=== PATIENT | female | born 1945 | race Caucasian/White ===

== ENCOUNTER → 2017-12-05 10:21 | Outpatient (CLI) | payer OTHER, SELFPAY ==
--- NOTE | 2017-12-05 | DI.MG.S_ITS ---
BILATERAL DIGITAL SCREENING MAMMOGRAM 3D/2D WITH CAD: 12/05/2017 CLINICAL: Routine screening. Family history of breast cancer. Comparison is made to exams dated: 12/02/2016 mammogram, 12/01/2015 mammogram, and 11/26/2014 mammogram - [facility]. The tissue of both breasts is predominantly fatty. Current study was also evaluated with a Computer Aided Detection (CAD) system. No significant masses, calcifications, or other findings are seen in either breast. There has been no significant interval change. IMPRESSION: NEGATIVE There is no mammographic evidence of malignancy. A 1 year screening mammogram is recommended.(12/06/2018) This exam was interpreted at Station ID: [id number]. NOTE: For mammograms, a report in lay terms will be sent to the patient. Approximately 15% of breast malignancies will not be visualized mammographically. In the management of a palpable breast mass, a negative mammogram must not discourage biopsy of a clinically suspicious lesion. Electronically Signed By: Calvin jones/jacklyn:12/07/2017 06:06:13 letter sent: Normal Exam ACR BI-RADS Category 1: Negative 3341F
== END ==
PROVIDERS: Family Provider Family Medicine; PCP Family Medicine; Visit Provider Family Medicine
DX: Z12.31 Encounter for screening mammogram for malignant neoplasm of breast (principal); Z80.3 Family history of malignant neoplasm of breast
CPT/HCPCS: 77063; 77067

== ENCOUNTER → 2018-02-06 14:42 | Outpatient (CLI) | payer OTHER, SELFPAY ==
[2018-02-06 15:30] LABS: Add Manual Diff / Slide Review NO; Basophils Percent Auto 0.9 % (0-2); Eosinophils Percent Auto 3.4 % (2-4); Hematocrit 43.7 % (36-46); Hemoglobin 14.5 g/dL (12.0-16.0); Lymphocytes Percent Auto 32.8 % (25-40); Mean Corpuscular HGB Conc 33.2 % (30-36); Mean Corpuscular Hemoglobin 29.3 PG (26-34); Mean Corpuscular Volume 88.2 fL (80-100); Neutrophils Absolute Auto 2700 /uL (3000-5900); Neutrophils Percent Auto 49.9 % (50-75); Platelet Count 314 X10^3/uL (150-400); Red Blood Cell Count 4.95 X10^6/uL (4.0-5.2); Red Cell Distribution Width 13.2 % (11.6-14.8); White Blood Cell Count 5.4 X10^3/uL (4.5-11.0)
[2018-02-06 15:34] LABS: Hemoglobin A1C% w Est Avg Glu 8.8 % (4.0-6.0)
[2018-02-06 16:14] LABS: Erythrocyte Sedimentation Rate 20 MM/HR (0-20)
[2018-02-06 16:49] LABS: Alanine Aminotransferase 24 IU/L (9-52); Albumin Globulin Ratio 1.6 (1.0-2.8); Alkaline Phosphatase 68 U/L (38-126); Aspartate Aminotransferase 19 IU/L (14-36); BUN Creatinine Ratio 32.9 (6-22); Bilirubin Total 0.4 mg/dL (0.2-1.3); Blood Urea Nitrogen 23 mg/dL (7-17); C-Reactive Protein Quant 1.9 mg/dL (<1.0); Calcium 9.4 mg/dL (8.4-10.2); Carbon Dioxide 22 mmol/L (22-32); Chloride 102 mmol/L (98-107); Estimated Glomerular Filt Rate > 60.0 mL/min (>60); Globulin 2.5 g/dL (1.7-4.1); Glucose 282 mg/dL (80-110); HEMOLYSIS < 15 (0-50); Potassium 3.8 mmol/L (3.4-5.1); Sodium 141 mmol/L (137-145); Total Protein 6.5 g/dL (6.3-8.2); Uric Acid 5.5 mg/dL (2.5-6.2)
[2018-02-06 17:04] LABS: Rheumatoid Factor 306.2 IU/mL (<12.0)
[2018-02-06 17:09] LABS: Thyroid Stimulating Hormone 0.91 uIU/mL (0.47-4.68)
[2018-02-08 19:54] LABS: ANA Pattern Homogeneous; ANA Screen, IFA Positive (Negative); ANA Titer 1:40 titer (<1:40)
== END ==
PROVIDERS: PCP Internal Medicine; Visit Provider Internal Medicine
DX: E11.9 Type 2 diabetes mellitus without complications (principal); E78.2 Mixed hyperlipidemia; I10 Essential (primary) hypertension; M25.40 Effusion, unspecified joint
CPT/HCPCS: 36415; 80053; 83036; 84443; 84550; 85025; 85651; 86038; 86140; 86430

== ENCOUNTER → 2018-05-28 14:24 | Outpatient (CLI) | payer OTHER, SELFPAY ==
[2018-05-28 16:08] LABS: Add Manual Diff / Slide Review NO; Basophils Absolute Auto 0 /uL (0-100); Basophils Percent Auto 0.4 % (0-2); Eosinophils Absolute Auto 100 /uL (0-450); Eosinophils Percent Auto 1.1 % (2-4); Hematocrit 43.9 % (36-46); Hemoglobin 14.3 g/dL (12.0-16.0); Lymphocytes Absolute Auto 1300 /uL (1100-4500); Lymphocytes Percent Auto 16.3 % (25-40); Mean Corpuscular HGB Conc 32.6 % (30-36); Mean Corpuscular Hemoglobin 29.5 PG (26-34); Mean Corpuscular Volume 90.4 fL (80-100); Monocytes Absolute Auto 500 /uL (0-900); Monocytes Percent Auto 6.5 % (3-14); Neutrophils Absolute Auto 6300 /uL (1500-7000); Neutrophils Percent Auto 75.7 % (50-75); Platelet Count 379 X10^3/uL (150-400); Red Blood Cell Count 4.85 X10^6/uL (4.0-5.2); Red Cell Distribution Width 15.5 % (11.6-14.8); White Blood Cell Count 8.3 X10^3/uL (4.5-11.0)
[2018-05-28 16:34] LABS: Alanine Aminotransferase 32 IU/L (9-52); Albumin 4.2 g/dL (3.5-5.0); Albumin Globulin Ratio 1.6 (1.0-2.8); Alkaline Phosphatase 62 U/L (38-126); Aspartate Aminotransferase 20 IU/L (14-36); BUN Creatinine Ratio 48.3 (6-22); Bilirubin Total 0.6 mg/dL (0.2-1.3); Blood Urea Nitrogen 29 mg/dL (7-17); C-Reactive Protein Quant 0.7 mg/dL (<1.0); Calcium 9.6 mg/dL (8.4-10.2); Carbon Dioxide 26 mmol/L (22-32); Chloride 99 mmol/L (98-107); Estimated Glomerular Filt Rate > 60.0 mL/min (>60); Globulin 2.7 g/dL (1.7-4.1); Glucose 221 mg/dL (80-110); HEMOLYSIS < 15 (0-50); Potassium 4.8 mmol/L (3.4-5.1); Sodium 138 mmol/L (137-145); Total Protein 6.9 g/dL (6.3-8.2)
[2018-05-28 16:40] LABS: Erythrocyte Sedimentation Rate 14 MM/HR (0-20)
== END ==
PROVIDERS: PCP Student in an Organized Health Care Education/Training Program; Visit Provider Internal Medicine Rheumatology
DX: M05.79 Rheumatoid arthritis with rheumatoid factor of multiple sites without organ or systems involvement (principal)
CPT/HCPCS: 36415; 80053; 85025; 85651; 86140

== ENCOUNTER → 2018-06-19 11:30 | Outpatient (CLI) | payer OTHER, SELFPAY ==
[2018-06-19 12:46] LABS: Hemoglobin A1C% w Est Avg Glu 7.5 % (4.0-6.0)
[2018-06-19 13:10] LABS: BUN Creatinine Ratio 41.1 (6-22); Blood Urea Nitrogen 37 mg/dL (7-17); Calcium 9.8 mg/dL (8.4-10.2); Carbon Dioxide 26 mmol/L (22-32); Chloride 99 mmol/L (98-107); Creatine Kinase 54 U/L (30-135); Estimated Glomerular Filt Rate > 60.0 mL/min (>60); Glucose 287 mg/dL (80-110); HEMOLYSIS < 15 (0-50); Magnesium 1.7 mg/dL (1.6-2.3); Potassium 4.7 mmol/L (3.4-5.1); Sodium 138 mmol/L (137-145)
[2018-06-19 16:24] LABS: Vitamin D 25 Hydroxy (D3) 49.7 ng/mL (30.0-100.0)
[2018-06-22 15:54] LABS: Rubeola Measles IgG > 300.00 AU/mL (< 25.00)
== END ==
PROVIDERS: PCP Student in an Organized Health Care Education/Training Program; Visit Provider Student in an Organized Health Care Education/Training Program
DX: E11.9 Type 2 diabetes mellitus without complications (principal); R25.2 Cramp and spasm; Z79.899 Other long term (current) drug therapy; Z91.89 Other specified personal risk factors, not elsewhere classified
CPT/HCPCS: 36415; 80048; 82306; 82550; 83036; 83735; 86765

== ENCOUNTER → 2018-09-12 16:26 | Outpatient (CLI) | payer OTHER, SELFPAY ==
[2018-09-12 17:50] LABS: Add Manual Diff / Slide Review NO; Basophils Absolute Auto 0 /uL (0-100); Basophils Percent Auto 0.8 % (0-2); Eosinophils Absolute Auto 300 /uL (0-450); Eosinophils Percent Auto 5.6 % (2-4); Hemoglobin 13.9 g/dL (12.0-16.0); Lymphocytes Absolute Auto 1900 /uL (1100-4500); Lymphocytes Percent Auto 34.9 % (25-40); Mean Corpuscular Hemoglobin 30.8 PG (26-34); Mean Corpuscular Volume 93.3 fL (80-100); Monocytes Absolute Auto 400 /uL (0-900); Monocytes Percent Auto 8.4 % (3-14); Neutrophils Absolute Auto 2700 /uL (1500-7000); Neutrophils Percent Auto 50.3 % (50-75); Platelet Count 355 X10^3/uL (150-400); Red Cell Distribution Width 13.4 % (11.6-14.8); White Blood Cell Count 5.4 X10^3/uL (4.5-11.0)
[2018-09-12 18:32] LABS: Erythrocyte Sedimentation Rate 16 MM/HR (0-20)
[2018-09-12 18:38] LABS: Alanine Aminotransferase 17 IU/L (9-52); Albumin Globulin Ratio 1.3 (1.0-2.8); Alkaline Phosphatase 68 U/L (38-126); Aspartate Aminotransferase 21 IU/L (14-36); Bilirubin Total 0.5 mg/dL (0.2-1.3); Blood Urea Nitrogen 23 mg/dL (7-17); C-Reactive Protein Quant 1.2 mg/dL (<1.0); Calcium 9.1 mg/dL (8.4-10.2); Carbon Dioxide 26 mmol/L (22-32); Chloride 103 mmol/L (98-107); Estimated Glomerular Filt Rate > 60.0 mL/min (>60); Glucose 230 mg/dL (80-110); HEMOLYSIS < 15 (0-50); Potassium 3.4 mmol/L (3.4-5.1); Sodium 140 mmol/L (137-145)
== END ==
PROVIDERS: Family Provider Student in an Organized Health Care Education/Training Program; PCP Student in an Organized Health Care Education/Training Program; Visit Provider Nurse Practitioner
DX: M05.29 Rheumatoid vasculitis with rheumatoid arthritis of multiple sites (principal)
CPT/HCPCS: 36415; 80053; 85025; 85651; 86140

== ENCOUNTER → 2018-10-01 14:57 | Outpatient (CLI) | payer OTHER, SELFPAY ==
[2018-10-01 16:48] LABS: Creatinine Urine Random 103.3 mg/dL
[2018-10-01 16:52] LABS: Microalbumi Creatinin Ratio Ur 21.2 ug/mg CR (<30); Microalbumin Urine Random 2.2 mg/dL (0-1.6)
== END ==
PROVIDERS: PCP Student in an Organized Health Care Education/Training Program; Visit Provider Student in an Organized Health Care Education/Training Program
DX: E11.9 Type 2 diabetes mellitus without complications (principal)
CPT/HCPCS: 82043; 82570

== ENCOUNTER → 2018-12-05 09:04 | Outpatient (CLI) | payer OTHER, SELFPAY ==
[2018-12-05 09:40] LABS: Add Manual Diff / Slide Review NO; Basophils Absolute Auto 100 /uL (0-100); Basophils Percent Auto 1.2 % (0-2); Eosinophils Absolute Auto 100 /uL (0-450); Eosinophils Percent Auto 2.6 % (2-4); Lymphocytes Absolute Auto 1200 /uL (1100-4500); Lymphocytes Percent Auto 27.3 % (25-40); Mean Corpuscular HGB Conc 34.2 % (30-36); Mean Corpuscular Hemoglobin 31.1 PG (26-34); Mean Corpuscular Volume 90.9 fL (80-100); Monocytes Absolute Auto 400 /uL (0-900); Neutrophils Absolute Auto 2800 /uL (1500-7000); Neutrophils Percent Auto 60.9 % (50-75); Platelet Count 279 X10^3/uL (150-400); Red Blood Cell Count 4.51 X10^6/uL (4.0-5.2); Red Cell Distribution Width 14.6 % (11.6-14.8); White Blood Cell Count 4.6 X10^3/uL (4.5-11.0)
[2018-12-05 09:55] LABS: Erythrocyte Sedimentation Rate 10 MM/HR (0-20)
[2018-12-05 10:43] LABS: Hemoglobin A1C% w Est Avg Glu 6.4 % (4.0-6.0)
[2018-12-05 10:44] LABS: Alanine Aminotransferase 26 IU/L (9-52); Albumin 4.1 g/dL (3.5-5.0); Albumin Globulin Ratio 1.5 (1.0-2.8); Alkaline Phosphatase 65 U/L (38-126); Aspartate Aminotransferase 24 IU/L (14-36); BUN Creatinine Ratio 41.3 (6-22); Blood Urea Nitrogen 33 mg/dL (7-17); C-Reactive Protein Quant 0.6 mg/dL (<1.0); Calcium 9.5 mg/dL (8.4-10.2); Carbon Dioxide 23 mmol/L (22-32); Chloride 103 mmol/L (98-107); Estimated Glomerular Filt Rate > 60.0 mL/min (>60); Globulin 2.7 g/dL (1.7-4.1); Glucose 248 mg/dL (80-110); HEMOLYSIS < 15 (0-50); Potassium 3.7 mmol/L (3.4-5.1); Sodium 140 mmol/L (137-145); Total Protein 6.8 g/dL (6.3-8.2)
== END ==
PROVIDERS: PCP Student in an Organized Health Care Education/Training Program; Visit Provider Nurse Practitioner
DX: M06.4 Inflammatory polyarthropathy (principal); M35.00 Sjogren syndrome, unspecified; E11.9 Type 2 diabetes mellitus without complications
CPT/HCPCS: 36415; 80053; 83036; 85025; 85651; 86140

== ENCOUNTER → 2018-12-13 16:01 | Outpatient (CLI) | payer OTHER, SELFPAY ==
--- NOTE | 2018-12-13 | DI.MG.S_ITS ---
BILATERAL DIGITAL SCREENING MAMMOGRAM 3D/2D WITH CAD: 12/13/2018 CLINICAL: Routine screening. Family history of breast cancer. Comparison is made to exams dated: 12/05/2017 mammogram, 12/02/2016 mammogram, and 12/01/2015 mammogram - [facility]. There are scattered fibroglandular elements in both breasts. Current study was also evaluated with a Computer Aided Detection (CAD) system. There are benign calcifications in both breasts. There also are benign post operative findings in both breasts. No significant masses, calcifications, or other findings are seen in either breast. There has been no significant interval change. IMPRESSION: There is no mammographic evidence of malignancy. A 1 year screening mammogram is recommended. This exam was interpreted at Station ID: [id number]. NOTE: For mammograms, a report in lay terms will be sent to the patient. Approximately 15% of breast malignancies will not be visualized mammographically. In the management of a palpable breast mass, a negative mammogram must not discourage biopsy of a clinically suspicious lesion. Electronically Signed By: Hugh montes de oca/jacklyn:12/13/2018 17:01:06 letter sent: Normal Exam ACR BI-RADS Category 2: Benign Finding(s) 3342F
== END ==
PROVIDERS: PCP Student in an Organized Health Care Education/Training Program; Visit Provider Student in an Organized Health Care Education/Training Program
DX: Z12.31 Encounter for screening mammogram for malignant neoplasm of breast (principal); Z80.3 Family history of malignant neoplasm of breast
CPT/HCPCS: 77063; 77067

== ENCOUNTER 2018-12-30 14:16 | Emergency (ER) | payer OTHER, SELFPAY ==
[2018-12-30 14:15] VITALS: BP 142/72; PULSE 75; RESP 14; TEMP 36.3; O2SAT 96
--- NOTE | 2018-12-30 14:38 | PC.NURSE ---
Brought patient 2 tuna sandwiches, yogurt and water
[2018-12-30 15:18] VITALS: BP 167/94; PULSE 87; RESP 18; O2SAT 98
[2018-12-30 16:04] VITALS: BP 144/71; PULSE 86; RESP 18; O2SAT 99
--- NOTE | 2018-12-30 16:22 | ED_ITS ---
HPI - General Adult General Chief complaint: Diabetic Problem Stated complaint: Low blood sugar Time Seen by Provider: 12/30/18 14:23 Source: patient and EMS Mode of arrival: EMS Limitations: no limitations History of Present Illness HPI narrative: Patient comes emergency department complaining of an episode of low blood sugar today, right after lunch. Patient states she took her regular dose of metformin 1000 mg this morning, and then her pre meal insulin 6 units. She states she ate popcorn and cheese, and began to feel as though her sugar was decreasing. Patient states she keep small cans of pop at home to provide quick sugar, and that she drinking a Pepsi. However, she remeasured and found her sugar was still decreasing. Patient denies any nausea or vomiting. She took some other sugary substances and then called EMS, who found her to be hypoglycemic when they arrived. They did give her oral glucose, and patient is feeling better now. Related Data Home Medications Medication Instructions Recorded Confirmed cyclosporine [Restasis] 0.05 OP BID #0 12/09/11 01/01/19 loratadine [Claritin RediTabs] 10 mg PO QDAY #0 12/09/11 01/01/19 aspirin 81 mg tablet,delayed 81 mg PO DAILY 10/13/18 01/01/19 release etanercept 50 mg/mL (1 mL) 50 mg SUBCUT QWEEK 12/20/18 01/01/19 subcutaneous syringe Previous Rx's Medication Instructions Recorded ibuprofen 800 mg tablet 800 mg PO Q6-8H PRN #30 tab 02/06/18 albuterol sulfate 90 mcg/actuation 1 puff INHALATION Q4H PRN #1 03/27/18 aerosol inhaler inhalation lisinopril 20 1 tab PO DAILY #90 tab 03/27/18 mg-hydrochlorothiazide 25 mg tablet metformin 500 mg tablet,extended 1,000 mg PO BID #360 tab 03/27/18 release 24 hr metoprolol tartrate 100 mg tablet 100 mg PO BID #180 tab 03/27/18 montelukast 10 mg tablet 10 mg PO QDAY #90 tab 03/27/18 simvastatin 40 mg tablet 40 mg PO Q DAY #90 tab 03/27/18 Glucose: Test Strips #100 each 04/20/18 cyclobenzaprine 10 mg tablet 10 mg PO Q6H PRN #60 tab 04/20/18 Lispro sliding scale #1 ea 09/21/18 pentips 31x1/4 #200 each 09/21/18 insulin lispro 100 unit/mL 6 unit SUBCUT QA #15 ml 10/04/18 subcutaneous pen amlodipine 5 mg tablet 5 mg PO DAILY #90 tab 12/20/18 Allergies Allergy/AdvReac Type Severity Reaction Status Date / Time propoxyphene [PROPOXYPHENE] Allergy Intermediate Itching Verified 01/01/19 15:30 Tetanus Vaccines and Toxoid Allergy Intermediate BLACK OUT Verified 01/01/19 15:30 [TETANUS VACCINES & TOXOID] cephalexin [CEPHALEXIN] Allergy Mild PT NOT SURE Verified 01/01/19 15:30 adhesive [ADHESIVE] AdvReac Severe ITCHY Verified 01/01/19 15:30 Review of Systems Constitutional Constitutional: Denies chills, Denies fatigue, Denies fever(s), Denies frequent falls, Denies lethargy and Denies weakness Eyes Eyes: Denies change in vision, Denies eye discharge, Denies irritation and Denies loss of vision ENT Ears, Nose, Mouth, and Throat: Denies change in voice, Denies dizziness, Denies neck pain, Denies sore throat and Denies throat swelling Cardiovascular Cardiovascular: Denies chest pain, Denies irregular heart rhythm, Denies lightheadedness, Denies palpitations, Denies dyspnea, Denies dyspnea on exertion and Denies orthopnea Respiratory Respiratory: Denies cough, Denies dyspnea, Denies dyspnea on exertion and Denies wheezing Gastrointestinal Gastrointestinal: Denies abdominal pain, Denies change in bowel habits, Denies diarrhea, Denies nausea and Denies vomiting Genitourinary Genitourinary: Denies hematuria, Denies flank pain, Denies urinary incontinence and Denies urinary urgency Musculoskeletal Musculoskeletal: Denies back pain, Denies muscle weakness, Denies neck pain, Denies numbness and Denies tingling Integumentary/Breasts Skin/Breast: Denies pruritus, Denies erythema, Denies rash and Denies wounds Neurologic Neurologic: Denies behavioral changes, Denies confusion, Denies dizziness, Denies frequent falls, Denies loss of vision, Denies numbness, Denies tingling and Denies weakness Psychiatric Psychiatric: Denies anxiety, Denies behavioral changes, Denies confusion, Denies depression, Denies homicidal ideation and Denies suicidal ideation Endocrine Endocrine: Denies fatigue, Denies flushing and Denies palpitations Hematologic/Lymphatic Hematologic/Lymphatic: Denies easy bruising Allergic/Immunologic Allergic/Immunologic: Denies urticaria, Denies throat swelling and Denies wheezing Patient History Medical History Abnormal Pap smear of cervix (Resolved 1977) Ankle pain (Chronic) Anxiety (Chronic) Asthma (Chronic) Chicken pox (Resolved) Chronic cough (Chronic) Chronic headaches (Chronic) CTS (carpal tunnel syndrome) (Chronic) Depression (Chronic) Diabetes mellitus (Chronic) Foot pain (Chronic) Hayfever (Chronic) History of heavy periods (Resolved 1959) Infertility (Resolved 1974) Irregular periods/menstrual cycles (Resolved 1959) Measles (Resolved) Migraines (Chronic) Rosacea (Chronic) Surgical History Anesthesia complication (Resolved) History of ankle surgery (Resolved) History of back surgery (Resolved) History of bladder surgery (Resolved) History of breast surgery (Resolved) History of colonoscopy (Resolved) History of eye surgery (Resolved) History of eyelid surgery (Resolved) History of gynecologic surgery (Resolved) History of hand surgery (Resolved) History of hysterectomy (Resolved) History of right knee surgery (Resolved) History of tonsillectomy (Resolved) History of tooth extraction (Resolved) History of urinary tract surgery (Resolved) Status post right foot surgery (Resolved) Surgical history of tubal ligation (Resolved) Family History Brother Age: 80 Skin cancer Hypertension High cholesterol Asthma COPD (chronic obstructive pulmonary disease) Heart defect Brother Age: 74 Skin cancer Hypertension S/P triple vessel bypass Father Skin cancer Hypertension Stroke Aortic aneurysm Grandfather Diabetes mellitus Stroke Mother Skin cancer Heart disease Hypertension Stroke Heart failure Brother SIDS (sudden infant syndrome) Grandmother Heart failure Grandfather Stroke Grandmother No problems noted. Social History Smoking Status: Never smoker alcohol intake frequency: 0-2 drinks per day Substance Use Type: does not use Exam Initial Vital Signs Initial Vital Signs: Vital Signs Temperature 97.4 F L 12/30/18 14:15 Pulse Rate 75 12/30/18 14:15 Respiratory Rate 14 12/30/18 14:15 Blood Pressure 142/72 H 12/30/18 14:15 Pulse Oximetry 96 12/30/18 14:15 Const General: cooperative and well developed Nutritional Appearance: well nourished Orientation: alert, awake, oriented x3 and not confused [facility] Head: normocephalic and atraumatic Ears: external ears normal Nose: external nose normal and No nasal discharge Face and sinus: face symmetric and No dry mucous membranes Mouth: oral mucosae normal and moist mucous membranes Teeth and gingiva: dentition normal Eyes General: appearance normal, both eyes and all related structures Eyelids: eyelids normal Conjunctivae: conjunctivae normal Sclera: sclerae normal Pupils: PERRL EOM: EOM intact bilaterally Neck Neck: normal visual inspection, trachea midline, No lymphadenopathy, No midline deformity and No JVD Lymphatic: No lymphedema Chest Chest: normal inspection of the chest Resp Effort & Inspection: normal respiratory effort, able to speak in complete sentences, no respiratory distress and no use of accessory muscles Auscultation: clear to auscultation bilaterally, no rales, no rhonchi and no wheezes Cardio Rate: regular rate Rhythm: regular rhythm Heart Sounds: no click, no gallops, no murmurs and no rubs Pulses: normal peripheral pulses GI Inspection: non-distended Palpation: soft, no hepatosplenomegaly, No guarding, No pulsatile mass and No tender Auscultation: normal bowel sounds Back/Spine/Pelvis Back: No CVA tenderness Cervical Spine: cervical ROM normal and No pain with cervical ROM Thoracic/Lumbar Spine: thoracic and lumbar spine normal to inspection Skin General: no rashes or lesions noted, No jaundice and No petechiae Neuro General: alert, oriented x3, gait normal and no focal motor deficits Speech: speech normal Extrem General: full ROM, no clubbing, cyanosis or edema, no pedal edema and no calf tenderness Psych Appearance: well kempt Mental Status: mental status grossly normal Attitude: cooperative Thought Content: normal and suicidality Judgment: judgment good Course Course Course Narrative: Patient was well-appearing by the time she arrived in the emergency department, and she was observed to be sure she would not become hypoglycemic again. The patient was given food to eat in the emergency department. Remained normal here. We have discussed making adjustments to the patient's BID metformin to see if this helps provide her sugars from going low. I have discussed the importance of follow-up with the patient's primary care physician, as prior to these recent days, patient has not had issues with hypoglycemia. As such, I would like her primary doctor to make the ultimate determination as to was a good long-term plan for the patient's glycemic management. We have discussed that the patient should check her sugar before deciding whether to take her normal dose of metformin or a little bit smaller one. We have discussed home management of symptoms, as well as the usual indications for return. Vital Signs Vital signs: Vital Signs - 8 hr 12/30/18 14:15 12/30/18 15:18 12/30/18 16:04 Temperature 97.4 F L Pulse Rate 75 87 86 Respiratory Rate 14 18 18 Blood Pressure 142/72 H Blood Pressure [Right Arm] 167/94 H 144/71 H Pulse Oximetry 96 98 99 Medical Decision Making Medical Records Medical records reviewed: Yes I reviewed the patient's medical records. 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 Hopefully, the 2 episodes of hypoglycemia that you have had are just a coincidence, as it seems that your diabetes regimen has actually been controlling your sugars quite well, without overshooting. However, if you do continue to have episodes of low blood sugar, the best plan this point, until you can see your primary care physician and determine exactly what to adjust in the long-term, would be to decrease your metformin to 750 mg twice daily and see if this prevents the low blood sugar episodes while giving you reasonable control of your blood sugar still. Please call your primary doctor's office 1st thing tomorrow morning to set up a follow-up appointment to discuss the issue of your blood sugar. Be sure to eat full meals to help avoid this problem, as well. Continue to keep quick sources of sugar around, preferably non caffeinated, as this can make your hypoglycemia worse. Prescriptions: No Action loratadine [Claritin RediTabs] 10 MG tablet,disintegrating 10 mg PO QDAY Qty: 0 RF: 0 cyclosporine [Restasis] 1 EACH dropperette 0.05 OP BID Qty: 0 RF: 0 (DME) Glucose: Test Strips 0 .Route .MEDSUPPLY Qty: 100 RF: 11 cyclobenzaprine 10 mg tablet 10 mg PO Q6H PRN (Reason: muscle spasm) Qty: 60 RF: 5 (DME) pentips 31x1/4 See Rx Instructions .Route .MEDSUPPLY Qty: 200 RF: 3 insulin lispro 100 unit/mL insulin pen 6 unit SUBCUT QAC Qty: 15 RF: 5 aspirin 81 mg tablet,delayed release (DR/EC) 81 mg PO DAILY RF: 0 ibuprofen 800 mg tablet 800 mg PO Q6-8H PRN (Reason: pain) Qty: 30 RF: 3 (DME) Lispro sliding scale Qty: 1 RF: 0 lisinopril-hydrochlorothiazide 20-25 mg tablet 1 tab PO DAILY Qty: 90 RF: 3 metoprolol tartrate 100 mg tablet 100 mg PO BID Qty: 180 RF: 3 simvastatin [Zocor] 40 mg tablet 40 mg PO Q DAY Qty: 90 RF: 3 metformin [Glucophage XR] 500 mg tablet extended release 24 hr 1,000 mg PO BID Qty: 360 RF: 3 albuterol sulfate [Ventolin HFA] 90 mcg/actuation HFA aerosol inhaler 1 puff INHALATION Q4H PRN (Reason: shortness of breath or wheezing) Qty: 1 RF: 11 montelukast [Singulair] 10 mg tablet 10 mg PO QDAY Qty: 90 RF: 3 amlodipine 5 mg tablet 5 mg PO DAILY Qty: 90 RF: 3 Enbrel 50 mg/mL (1 mL) syringe 50 mg SUBCUT QWEEK RF: 0 Referrals: Madi Moser MD [Primary Care Provider] -
== END 2018-12-30 16:44 | disposition home or self-care (01) ==
PROVIDERS: Emergency Provider Emergency Medicine; PCP Student in an Organized Health Care Education/Training Program
DX: E13.649 Other specified diabetes mellitus with hypoglycemia without coma (principal)
CPT/HCPCS: 82962; 99282

== ENCOUNTER → 2019-01-01 14:11 | Outpatient (CLI) | payer OTHER, SELFPAY | PROVIDERS: PCP Student in an Organized Health Care Education/Training Program; Visit Provider Student in an Organized Health Care Education/Training Program | DX: Z13.820 Encounter for screening for osteoporosis (principal); Z78.0 Asymptomatic menopausal state; E11.9 Type 2 diabetes mellitus without complications; R29.890 Loss of height; M06.9 Rheumatoid arthritis, unspecified; Z82.62 Family history of osteoporosis; Z91.89 Other specified personal risk factors, not elsewhere classified | CPT/HCPCS: 77080 ==

== ENCOUNTER → 2019-04-12 10:26 | Outpatient (CLI) | payer OTHER, SELFPAY ==
[2019-04-12 12:38] LABS: Hemoglobin A1C% w Est Avg Glu 7.3 % (4.0-6.0)
== END ==
PROVIDERS: PCP Student in an Organized Health Care Education/Training Program; Visit Provider Student in an Organized Health Care Education/Training Program
DX: E11.9 Type 2 diabetes mellitus without complications (principal)
CPT/HCPCS: 36415; 83036

== ENCOUNTER → 2019-04-20 10:50 | Outpatient (CLI) | payer OTHER, SELFPAY ==
[2019-04-20 11:34] LABS: Add Manual Diff / Slide Review NO; Basophils Absolute Auto 100 /uL (0-100); Basophils Percent Auto 1.2 % (0-2); Eosinophils Absolute Auto 300 /uL (0-450); Eosinophils Percent Auto 5.5 % (2-4); Hematocrit 44.3 % (36-46); Hemoglobin 15.4 g/dL (12.0-16.0); Lymphocytes Absolute Auto 1800 /uL (1100-4500); Lymphocytes Percent Auto 31.5 % (25-40); Mean Corpuscular HGB Conc 34.8 % (30-36); Mean Corpuscular Hemoglobin 31.6 PG (26-34); Mean Corpuscular Volume 90.8 fL (80-100); Monocytes Absolute Auto 700 /uL (0-900); Monocytes Percent Auto 12.2 % (3-14); Neutrophils Absolute Auto 2900 /uL (1500-7000); Neutrophils Percent Auto 49.6 % (50-75); Platelet Count 301 X10^3/uL (150-400); Red Blood Cell Count 4.88 X10^6/uL (4.0-5.2); White Blood Cell Count 5.9 X10^3/uL (4.5-11.0)
[2019-04-20 12:06] LABS: Erythrocyte Sedimentation Rate 5 MM/HR (0-20)
[2019-04-20 13:18] LABS: Alanine Aminotransferase 22 IU/L (<35); Albumin 4.5 g/dL (3.5-5.0); Albumin Globulin Ratio 1.5 (1.0-2.8); Alkaline Phosphatase 56 U/L (38-126); Aspartate Aminotransferase 22 IU/L (14-36); BUN Creatinine Ratio 38.6 (6-22); Bilirubin Total 0.9 mg/dL (0.2-1.3); Blood Urea Nitrogen 27 mg/dL (7-17); Calcium 10.4 mg/dL (8.4-10.2); Carbon Dioxide 28 mmol/L (22-32); Chloride 102 mmol/L (98-107); Estimated Glomerular Filt Rate > 60.0 mL/min (>60); Glucose 132 mg/dL (80-110); HEMOLYSIS < 15 (0-50); Potassium 4.6 mmol/L (3.4-5.1); Sodium 141 mmol/L (137-145); Total Protein 7.5 g/dL (6.3-8.2)
[2019-04-20 13:20] LABS: C-Reactive Protein Quant < 0.5 mg/dL (<1.0)
== END ==
PROVIDERS: PCP Student in an Organized Health Care Education/Training Program; Referring Provider Nurse Practitioner; Visit Provider Nurse Practitioner
DX: M05.29 Rheumatoid vasculitis with rheumatoid arthritis of multiple sites (principal)
CPT/HCPCS: 36415; 80053; 85025; 85651; 86140

== ENCOUNTER → 2019-08-14 12:18 | Outpatient (CLI) | payer OTHER, SELFPAY ==
[2019-08-14 13:48] LABS: Add Manual Diff / Slide Review NO; Basophils Absolute Auto 0 /uL (0-100); Basophils Percent Auto 0.8 % (0-2); Eosinophils Absolute Auto 200 /uL (0-450); Eosinophils Percent Auto 3.6 % (2-4); Hematocrit 42.5 % (36-46); Hemoglobin 14.8 g/dL (12.0-16.0); Lymphocytes Absolute Auto 2600 /uL (1100-4500); Lymphocytes Percent Auto 49.3 % (25-40); Mean Corpuscular HGB Conc 34.8 % (30-36); Mean Corpuscular Hemoglobin 31.5 PG (26-34); Mean Corpuscular Volume 90.5 fL (80-100); Monocytes Absolute Auto 500 /uL (0-900); Monocytes Percent Auto 8.8 % (3-14); Neutrophils Absolute Auto 2000 /uL (1500-7000); Neutrophils Percent Auto 37.5 % (50-75); Platelet Count 296 X10^3/uL (150-400); Red Cell Distribution Width 13.6 % (11.6-14.8); White Blood Cell Count 5.2 X10^3/uL (4.5-11.0)
[2019-08-14 14:04] LABS: Erythrocyte Sedimentation Rate 7 MM/HR (0-20)
[2019-08-14 14:16] LABS: Hemoglobin A1C% w Est Avg Glu 7.1 % (4.0-6.0)
[2019-08-14 14:28] LABS: Alanine Aminotransferase 25 IU/L (<35); Albumin 4.4 g/dL (3.5-5.0); Albumin Globulin Ratio 1.6 (1.0-2.8); Alkaline Phosphatase 63 U/L (38-126); Aspartate Aminotransferase 30 IU/L (14-36); BUN Creatinine Ratio 35.4 (6-22); Bilirubin Total 1.1 mg/dL (0.2-1.3); Blood Urea Nitrogen 23 mg/dL (7-17); Carbon Dioxide 22 mmol/L (22-32); Chloride 103 mmol/L (98-107); Estimated Glomerular Filt Rate > 60.0 mL/min (>60); Globulin 2.8 g/dL (1.7-4.1); Glucose 187 mg/dL (80-110); HEMOLYSIS < 15 (0-50); Potassium 3.9 mmol/L (3.4-5.1); Sodium 137 mmol/L (137-145); Total Protein 7.2 g/dL (6.3-8.2)
[2019-08-14 14:51] LABS: C-Reactive Protein Quant < 0.5 mg/dL (<1.0)
== END ==
PROVIDERS: PCP Student in an Organized Health Care Education/Training Program; Referring Provider Internal Medicine Rheumatology; Visit Provider Internal Medicine Rheumatology
DX: M05.79 Rheumatoid arthritis with rheumatoid factor of multiple sites without organ or systems involvement (principal); E11.9 Type 2 diabetes mellitus without complications
CPT/HCPCS: 36415; 80053; 83036; 85025; 85651; 86140

== ENCOUNTER → 2019-08-15 14:53 | Outpatient (CLI) | payer OTHER, SELFPAY ==
[2019-08-15 15:46] LABS: Creatinine Urine Random 109.8 mg/dL
[2019-08-15 15:49] LABS: Microalbumin Urine Random 11.2 mg/dL (0-1.6)
== END ==
PROVIDERS: PCP Student in an Organized Health Care Education/Training Program; Referring Provider Student in an Organized Health Care Education/Training Program; Visit Provider Student in an Organized Health Care Education/Training Program
DX: E11.9 Type 2 diabetes mellitus without complications (principal)
CPT/HCPCS: 82043; 82570

== ENCOUNTER → 2019-11-22 06:54 | Outpatient (CLI) | payer OTHER, SELFPAY ==
[2019-11-22 07:41] LABS: Add Manual Diff / Slide Review NO; Basophils Absolute Auto 100 /uL (0-100); Basophils Percent Auto 1.2 % (0-2); Eosinophils Absolute Auto 300 /uL (0-450); Eosinophils Percent Auto 5.2 % (2-4); Hematocrit 42.3 % (36-46); Hemoglobin 14.3 g/dL (12.0-16.0); Lymphocytes Absolute Auto 2000 /uL (1100-4500); Lymphocytes Percent Auto 35.8 % (25-40); Mean Corpuscular HGB Conc 33.7 % (30-36); Mean Corpuscular Hemoglobin 31.2 PG (26-34); Mean Corpuscular Volume 92.6 fL (80-100); Monocytes Absolute Auto 600 /uL (0-900); Monocytes Percent Auto 11.4 % (3-14); Neutrophils Absolute Auto 2600 /uL (1500-7000); Neutrophils Percent Auto 46.4 % (50-75); Platelet Count 283 X10^3/uL (150-400); Red Blood Cell Count 4.57 X10^6/uL (4.0-5.2); Red Cell Distribution Width 13.7 % (11.6-14.8); White Blood Cell Count 5.5 X10^3/uL (4.5-11.0)
[2019-11-22 07:45] LABS: Hemoglobin A1C% w Est Avg Glu 7.2 % (4.0-6.0)
[2019-11-22 08:09] LABS: Erythrocyte Sedimentation Rate 5 MM/HR (0-20)
[2019-11-22 08:13] LABS: Creatinine Urine Random 90.5 mg/dL
[2019-11-22 08:15] LABS: Alanine Aminotransferase 27 IU/L (<35); Albumin 4.2 g/dL (3.5-5.0); Albumin Globulin Ratio 1.6 (1.0-2.8); Alkaline Phosphatase 66 U/L (38-126); Aspartate Aminotransferase 23 IU/L (14-36); BUN Creatinine Ratio 40.9 (6-22); Bilirubin Total 0.7 mg/dL (0.2-1.3); Blood Urea Nitrogen 27 mg/dL (7-17); Calcium 9.1 mg/dL (8.4-10.2); Carbon Dioxide 27 mmol/L (22-32); Chloride 101 mmol/L (98-107); Estimated Glomerular Filt Rate > 60.0 mL/min (>60); Globulin 2.7 g/dL (1.7-4.1); Glucose 196 mg/dL (80-110); HEMOLYSIS < 15 (0-50); Potassium 3.6 mmol/L (3.4-5.1); Sodium 136 mmol/L (137-145); Total Protein 6.9 g/dL (6.3-8.2)
[2019-11-22 08:18] LABS: Microalbumi Creatinin Ratio Ur 44.1 ug/mg CR (<30)
[2019-11-22 08:25] LABS: C-Reactive Protein Quant < 0.5 mg/dL (<1.0)
== END ==
PROVIDERS: PCP Student in an Organized Health Care Education/Training Program; Referring Provider Internal Medicine Rheumatology; Visit Provider Internal Medicine Rheumatology
DX: M05.79 Rheumatoid arthritis with rheumatoid factor of multiple sites without organ or systems involvement (principal); Z79.4 Long term (current) use of insulin; E11.29 Type 2 diabetes mellitus with other diabetic kidney complication; R80.9 Proteinuria, unspecified
CPT/HCPCS: 36415; 80053; 82043; 82570; 83036; 85025; 85651; 86140

== ENCOUNTER → 2019-12-24 08:44 | Outpatient (CLI) | payer OTHER, SELFPAY ==
--- NOTE | 2019-12-24 | DI.MG.S_ITS ---
BILATERAL DIGITAL SCREENING MAMMOGRAM 3D/2D WITH CAD: 12/24/2019 CLINICAL: Routine screening. Family history of breast cancer. Comparison is made to exams dated: 12/13/2018 mammogram, 12/05/2017 mammogram, and 12/02/2016 mammogram - [facility]. There are scattered fibroglandular elements in both breasts. Current study was also evaluated with a Computer Aided Detection (CAD) system. There are benign calcifications in both breasts. There also are benign post operative findings in both breasts. No significant masses, calcifications, or other findings are seen in either breast. There has been no significant interval change. IMPRESSION: BENIGN There is no mammographic evidence of malignancy. A 1 year screening mammogram is recommended. This exam was interpreted at Station ID: [id number]. NOTE: For mammograms, a report in lay terms will be sent to the patient. Approximately 15% of breast malignancies will not be visualized mammographically. In the management of a palpable breast mass, a negative mammogram must not discourage biopsy of a clinically suspicious lesion. Electronically Signed By: Rosa burns/jacklyn:12/24/2019 09:10:58 letter sent: Normal Exam ACR BI-RADS Category 2: Benign Finding(s) 3342F
== END ==
PROVIDERS: PCP Student in an Organized Health Care Education/Training Program; Referring Provider Student in an Organized Health Care Education/Training Program; Visit Provider Student in an Organized Health Care Education/Training Program
DX: Z12.31 Encounter for screening mammogram for malignant neoplasm of breast (principal); Z80.3 Family history of malignant neoplasm of breast
CPT/HCPCS: 77063; 77067

== ENCOUNTER → 2020-02-14 07:12 | Outpatient (CLI) | payer OTHER, SELFPAY ==
[2020-02-14 08:27] LABS: Add Manual Diff / Slide Review NO; Basophils Absolute Auto 100 /uL (0-100); Basophils Percent Auto 1.5 % (0-2); Eosinophils Absolute Auto 300 /uL (0-450); Eosinophils Percent Auto 4.8 % (2-4); Hematocrit 40.3 % (36-46); Hemoglobin 13.5 g/dL (12.0-16.0); Lymphocytes Absolute Auto 2400 /uL (1100-4500); Lymphocytes Percent Auto 44.3 % (25-40); Mean Corpuscular HGB Conc 33.6 % (30-36); Mean Corpuscular Hemoglobin 30.8 PG (26-34); Mean Corpuscular Volume 91.8 fL (80-100); Monocytes Absolute Auto 600 /uL (0-900); Monocytes Percent Auto 11.7 % (3-14); Neutrophils Absolute Auto 2100 /uL (1500-7000); Neutrophils Percent Auto 37.7 % (50-75); Platelet Count 274 X10^3/uL (150-400); Red Blood Cell Count 4.39 X10^6/uL (4.0-5.2); Red Cell Distribution Width 13.6 % (11.6-14.8); White Blood Cell Count 5.4 X10^3/uL (4.5-11.0)
[2020-02-14 08:32] LABS: Hemoglobin A1C% w Est Avg Glu 7.5 % (4.0-6.0)
[2020-02-14 08:36] LABS: Erythrocyte Sedimentation Rate 9 MM/HR (0-20)
[2020-02-14 09:02] LABS: Alanine Aminotransferase 24 IU/L (<35); Albumin Globulin Ratio 1.5 (1.0-2.8); Alkaline Phosphatase 63 U/L (38-126); Aspartate Aminotransferase 23 IU/L (14-36); BUN Creatinine Ratio 40.3 (6-22); Bilirubin Total 0.7 mg/dL (0.2-1.3); Blood Urea Nitrogen 25 mg/dL (7-17); C-Reactive Protein Quant < 0.5 mg/dL (<1.0); Calcium 9.3 mg/dL (8.4-10.2); Carbon Dioxide 27 mmol/L (22-32); Chloride 103 mmol/L (98-107); Estimated Glomerular Filt Rate > 60.0 mL/min (>60); Globulin 2.6 g/dL (1.7-4.1); Glucose 182 mg/dL (80-110); HEMOLYSIS < 15 (0-50); Sodium 137 mmol/L (137-145); Total Protein 6.6 g/dL (6.3-8.2)
== END ==
PROVIDERS: PCP Student in an Organized Health Care Education/Training Program; Referring Provider Internal Medicine Rheumatology; Visit Provider Internal Medicine Rheumatology
DX: M05.79 Rheumatoid arthritis with rheumatoid factor of multiple sites without organ or systems involvement (principal); E11.29 Type 2 diabetes mellitus with other diabetic kidney complication; R80.9 Proteinuria, unspecified
CPT/HCPCS: 36415; 80053; 83036; 85025; 85651; 86140

== ENCOUNTER → 2020-05-16 08:35 | Outpatient (CLI) | payer OTHER, SELFPAY ==
[2020-05-16 10:21] LABS: Add Manual Diff / Slide Review NO; Basophils Absolute Auto 100 /uL (0-100); Basophils Percent Auto 2.4 % (0-2); Eosinophils Absolute Auto 400 /uL (0-450); Eosinophils Percent Auto 9.6 % (2-4); Hematocrit 39.5 % (36-46); Hemoglobin 13.2 g/dL (12.0-16.0); Lymphocytes Absolute Auto 1200 /uL (1100-4500); Lymphocytes Percent Auto 27.6 % (25-40); Mean Corpuscular HGB Conc 33.4 % (30-36); Mean Corpuscular Hemoglobin 31.2 PG (26-34); Mean Corpuscular Volume 93.1 fL (80-100); Monocytes Absolute Auto 400 /uL (0-900); Monocytes Percent Auto 9.2 % (3-14); Neutrophils Absolute Auto 2300 /uL (1500-7000); Neutrophils Percent Auto 51.2 % (50-75); Platelet Count 263 X10^3/uL (150-400); Red Blood Cell Count 4.24 X10^6/uL (4.0-5.2); Red Cell Distribution Width 13.6 % (11.6-14.8); White Blood Cell Count 4.5 X10^3/uL (4.5-11.0)
[2020-05-16 10:30] LABS: Hemoglobin A1C% w Est Avg Glu 7.1 % (4.0-6.0)
[2020-05-16 10:34] LABS: Alanine Aminotransferase 20 IU/L (<35); Albumin 3.9 g/dL (3.5-5.0); Albumin Globulin Ratio 1.6 (1.0-2.8); Alkaline Phosphatase 56 U/L (38-126); Aspartate Aminotransferase 20 IU/L (14-36); BUN Creatinine Ratio 35.7 (6-22); Bilirubin Total 0.8 mg/dL (0.2-1.3); Blood Urea Nitrogen 20 mg/dL (7-17); Calcium 9.1 mg/dL (8.4-10.2); Carbon Dioxide 27 mmol/L (22-32); Chloride 103 mmol/L (98-107); Estimated Glomerular Filt Rate > 60.0 mL/min (>60); Globulin 2.4 g/dL (1.7-4.1); Glucose 180 mg/dL (80-110); HEMOLYSIS < 15 (0-50); Potassium 3.6 mmol/L (3.4-5.1); Sodium 136 mmol/L (137-145); Total Protein 6.3 g/dL (6.3-8.2)
[2020-05-16 10:35] LABS: C-Reactive Protein Quant < 0.5 mg/dL (<1.0)
[2020-05-16 10:38] LABS: Erythrocyte Sedimentation Rate 8 MM/HR (0-20)
== END ==
PROVIDERS: PCP Student in an Organized Health Care Education/Training Program; Referring Provider Internal Medicine Rheumatology; Visit Provider Internal Medicine Rheumatology
DX: M05.79 Rheumatoid arthritis with rheumatoid factor of multiple sites without organ or systems involvement (principal); E11.29 Type 2 diabetes mellitus with other diabetic kidney complication; R80.9 Proteinuria, unspecified; I10 Essential (primary) hypertension
CPT/HCPCS: 36415; 80053; 83036; 85025; 85651; 86140

== ENCOUNTER → 2020-08-12 09:39 | Outpatient (CLI) | payer OTHER, SELFPAY ==
[2020-08-12 10:25] LABS: Add Manual Diff / Slide Review NO; Basophils Absolute Auto 0 /uL (0-100); Eosinophils Absolute Auto 200 /uL (0-450); Eosinophils Percent Auto 4.9 % (2-4); Hematocrit 42.2 % (36-46); Lymphocytes Absolute Auto 1600 /uL (1100-4500); Lymphocytes Percent Auto 34.4 % (25-40); Mean Corpuscular HGB Conc 33.1 % (30-36); Mean Corpuscular Hemoglobin 30.9 PG (26-34); Mean Corpuscular Volume 93.3 fL (80-100); Monocytes Absolute Auto 400 /uL (0-900); Monocytes Percent Auto 9.3 % (3-14); Neutrophils Absolute Auto 2400 /uL (1500-7000); Neutrophils Percent Auto 50.4 % (50-75); Platelet Count 286 X10^3/uL (150-400); Red Blood Cell Count 4.52 X10^6/uL (4.0-5.2); Red Cell Distribution Width 13.9 % (11.6-14.8); White Blood Cell Count 4.7 X10^3/uL (4.5-11.0)
[2020-08-12 10:45] LABS: Erythrocyte Sedimentation Rate 8 MM/HR (0-20)
[2020-08-12 10:59] LABS: Alanine Aminotransferase 23 IU/L (<35); Albumin Globulin Ratio 1.5 (1.0-2.8); Alkaline Phosphatase 63 U/L (38-126); Aspartate Aminotransferase 25 IU/L (14-36); BUN Creatinine Ratio 30.3 (6-22); Bilirubin Total 0.8 mg/dL (0.2-1.3); Blood Urea Nitrogen 20 mg/dL (7-17); C-Reactive Protein Quant < 0.5 mg/dL (<1.0); Calcium 9.7 mg/dL (8.4-10.2); Carbon Dioxide 23 mmol/L (22-32); Chloride 105 mmol/L (98-107); Estimated Glomerular Filt Rate > 60.0 mL/min (>60); Globulin 2.6 g/dL (1.7-4.1); Glucose 254 mg/dL (80-110); HEMOLYSIS < 15 (0-50); Potassium 3.9 mmol/L (3.4-5.1); Sodium 137 mmol/L (137-145); Total Protein 6.6 g/dL (6.3-8.2)
== END ==
PROVIDERS: PCP Student in an Organized Health Care Education/Training Program; Referring Provider Internal Medicine Rheumatology; Visit Provider Internal Medicine Rheumatology
DX: M05.79 Rheumatoid arthritis with rheumatoid factor of multiple sites without organ or systems involvement (principal)
CPT/HCPCS: 36415; 80053; 85025; 85651; 86140

== ENCOUNTER → 2020-11-13 08:36 | Outpatient (CLI) | payer OTHER, SELFPAY ==
[2020-11-13 09:45] LABS: Add Manual Diff / Slide Review NO; Basophils Absolute Auto 100 /uL (0-100); Basophils Percent Auto 1.9 % (0-2); Eosinophils Absolute Auto 700 /uL (0-450); Eosinophils Percent Auto 12.5 % (2-4); Hematocrit 42.3 % (36-46); Hemoglobin 14.2 g/dL (12.0-16.0); Lymphocytes Absolute Auto 1700 /uL (1100-4500); Lymphocytes Percent Auto 33.5 % (25-40); Mean Corpuscular HGB Conc 33.7 % (30-36); Mean Corpuscular Hemoglobin 31.2 PG (26-34); Mean Corpuscular Volume 92.8 fL (80-100); Monocytes Absolute Auto 400 /uL (0-900); Monocytes Percent Auto 8.5 % (3-14); Neutrophils Absolute Auto 2300 /uL (1500-7000); Neutrophils Percent Auto 43.6 % (50-75); Platelet Count 279 X10^3/uL (150-400); Red Blood Cell Count 4.56 X10^6/uL (4.0-5.2); Red Cell Distribution Width 13.7 % (11.6-14.8); White Blood Cell Count 5.2 X10^3/uL (4.5-11.0)
[2020-11-13 09:48] LABS: Hemoglobin A1C% w Est Avg Glu 7.1 % (4.0-6.0)
[2020-11-13 09:57] LABS: BUN Creatinine Ratio 36.8 (6-22); Blood Urea Nitrogen 21 mg/dL (7-17); Estimated Glomerular Filt Rate > 60.0 mL/min (>60)
[2020-11-13 09:58] LABS: Alanine Aminotransferase 26 IU/L (<35); Albumin 4.3 g/dL (3.5-5.0); Albumin Globulin Ratio 1.5 (1.0-2.8); Alkaline Phosphatase 60 U/L (38-126); Aspartate Aminotransferase 26 IU/L (14-36); BUN Creatinine Ratio 35.1 (6-22); Bilirubin Total 0.8 mg/dL (0.2-1.3); Blood Urea Nitrogen 20 mg/dL (7-17); C-Reactive Protein Quant < 0.5 mg/dL (<1.0); Calcium 9.3 mg/dL (8.4-10.2); Carbon Dioxide 25 mmol/L (22-32); Chloride 105 mmol/L (98-107); Estimated Glomerular Filt Rate > 60.0 mL/min (>60); Globulin 2.8 g/dL (1.7-4.1); Glucose 203 mg/dL (80-110); HEMOLYSIS < 15 (0-50); Potassium 3.4 mmol/L (3.4-5.1); Sodium 139 mmol/L (137-145); Total Protein 7.1 g/dL (6.3-8.2)
[2020-11-13 10:08] LABS: Erythrocyte Sedimentation Rate 7 MM/HR (0-20)
[2020-11-13 12:14] LABS: Creatinine Urine Random 107.6 mg/dL
[2020-11-13 12:18] LABS: Microalbumi Creatinin Ratio Ur 95.7 ug/mg CR (<30); Microalbumin Urine Random 10.3 mg/dL (0-1.6)
== END ==
PROVIDERS: PCP Student in an Organized Health Care Education/Training Program; Referring Provider Internal Medicine Rheumatology; Visit Provider Internal Medicine Rheumatology
DX: E11.29 Type 2 diabetes mellitus with other diabetic kidney complication (principal); E11.9 Type 2 diabetes mellitus without complications; R80.9 Proteinuria, unspecified; M05.79 Rheumatoid arthritis with rheumatoid factor of multiple sites without organ or systems involvement
CPT/HCPCS: 36415; 80053; 82043; 82565; 82570; 83036; 84520; 85025; 85651; 86140

== ENCOUNTER → 2020-12-01 09:34 | Outpatient (CLI) | payer OTHER, SELFPAY ==
[2020-12-01 11:32] LABS: Hepatitis B Surface Antigen NEGATIVE s/c (NEGATIVE)
[2020-12-07 08:50] LABS: QuantiFERON Mitogen Value >10.00 IU/mL (.); QuantiFERON Nil Value 0.04 IU/mL (.); QuantiFERON TB Gold Plus Negative (Negative); QuantiFERON TB1 Ag Value 0.06 IU/mL (.); QuantiFERON TB2 Ag Value 0.08 IU/mL (.)
== END ==
PROVIDERS: PCP Student in an Organized Health Care Education/Training Program; Referring Provider Internal Medicine Rheumatology; Visit Provider Internal Medicine Rheumatology
DX: M05.79 Rheumatoid arthritis with rheumatoid factor of multiple sites without organ or systems involvement (principal)
CPT/HCPCS: 36415; 86480; 87340; 87522

== ENCOUNTER → 2021-01-05 08:40 | Outpatient (CLI) | payer OTHER, SELFPAY ==
--- NOTE | 2021-01-05 08:43 | DI.MG.S_ITS ---
BILATERAL DIGITAL SCREENING MAMMOGRAM 3D/2D WITH CAD: 01/05/2021 CLINICAL: Routine screening. Family history of breast cancer. Comparison is made to exams dated: 12/24/2019 mammogram, 12/13/2018 mammogram, and 12/05/2017 mammogram - [facility]. There are scattered fibroglandular elements in both breasts. Current study was also evaluated with a Computer Aided Detection (CAD) system. There are benign calcifications in both breasts. There also are benign post operative findings in both breasts. No significant masses, calcifications, or other findings are seen in either breast. There has been no significant interval change. IMPRESSION: BENIGN There is no mammographic evidence of malignancy. A 1 year screening mammogram is recommended. This exam was interpreted at Station ID: [id number]. NOTE: For mammograms, a report in lay terms will be sent to the patient. Approximately 15% of breast malignancies will not be visualized mammographically. In the management of a palpable breast mass, a negative mammogram must not discourage biopsy of a clinically suspicious lesion. Electronically Signed By: Gustavo Jaimes acr/jacklyn:01/05/2021 09:32:40 letter sent: Normal Exam ACR BI-RADS Category 2: Benign Finding(s) 3342F
== END ==
PROVIDERS: PCP Student in an Organized Health Care Education/Training Program; Referring Provider Student in an Organized Health Care Education/Training Program; Visit Provider Student in an Organized Health Care Education/Training Program
DX: Z12.31 Encounter for screening mammogram for malignant neoplasm of breast (principal); Z80.3 Family history of malignant neoplasm of breast
CPT/HCPCS: 77063; 77067

== ENCOUNTER → 2021-02-11 12:23 | Outpatient (CLI) | payer OTHER, SELFPAY ==
[2021-02-11 14:01] LABS: Add Manual Diff / Slide Review NO; Basophils Absolute Auto 100 /uL (0-100); Basophils Percent Auto 1.2 % (0-2); Eosinophils Absolute Auto 300 /uL (0-450); Eosinophils Percent Auto 4.1 % (2-4); Hematocrit 41.8 % (36-46); Hemoglobin 14.2 g/dL (12.0-16.0); Lymphocytes Absolute Auto 2400 /uL (1100-4500); Lymphocytes Percent Auto 35.3 % (25-40); Mean Corpuscular HGB Conc 34.1 % (30-36); Mean Corpuscular Hemoglobin 31.7 PG (26-34); Mean Corpuscular Volume 92.9 fL (80-100); Monocytes Absolute Auto 700 /uL (0-900); Monocytes Percent Auto 10.2 % (3-14); Neutrophils Absolute Auto 3300 /uL (1500-7000); Neutrophils Percent Auto 49.2 % (50-75); Platelet Count 293 X10^3/uL (150-400); Red Cell Distribution Width 13.4 % (11.6-14.8); White Blood Cell Count 6.7 X10^3/uL (4.5-11.0)
[2021-02-11 14:29] LABS: Erythrocyte Sedimentation Rate 7 MM/HR (0-20)
[2021-02-11 14:36] LABS: Alanine Aminotransferase 23 IU/L (<35); Albumin 4.4 g/dL (3.5-5.0); Albumin Globulin Ratio 1.6 (1.0-2.8); Alkaline Phosphatase 68 U/L (38-126); Aspartate Aminotransferase 24 IU/L (14-36); BUN Creatinine Ratio 32.4 (6-22); Bilirubin Total 0.8 mg/dL (0.2-1.3); Blood Urea Nitrogen 22 mg/dL (7-17); C-Reactive Protein Quant < 0.5 mg/dL (<1.0); Calcium 9.9 mg/dL (8.4-10.2); Carbon Dioxide 26 mmol/L (22-32); Chloride 102 mmol/L (98-107); Estimated Glomerular Filt Rate > 60.0 mL/min (>60); Globulin 2.7 g/dL (1.7-4.1); Glucose 112 mg/dL (80-110); HEMOLYSIS < 15 (0-50); Potassium 4.1 mmol/L (3.4-5.1); Sodium 137 mmol/L (137-145); Total Protein 7.1 g/dL (6.3-8.2)
== END ==
PROVIDERS: PCP Student in an Organized Health Care Education/Training Program; Referring Provider Internal Medicine Rheumatology; Visit Provider Internal Medicine Rheumatology
DX: M05.79 Rheumatoid arthritis with rheumatoid factor of multiple sites without organ or systems involvement (principal)
CPT/HCPCS: 36415; 80053; 85025; 85651; 86140

== ENCOUNTER → 2021-05-12 07:56 | Outpatient (CLI) | payer OTHER, SELFPAY ==
[2021-05-12 08:21] LABS: Add Manual Diff / Slide Review NO; Basophils Absolute Auto 100 /uL (0-100); Basophils Percent Auto 1.4 % (0-2); Eosinophils Absolute Auto 300 /uL (0-450); Eosinophils Percent Auto 5.9 % (2-4); Hematocrit 40.9 % (36-46); Hemoglobin 13.8 g/dL (12.0-16.0); Lymphocytes Absolute Auto 2000 /uL (1100-4500); Lymphocytes Percent Auto 46.8 % (25-40); Mean Corpuscular HGB Conc 33.9 % (30-36); Mean Corpuscular Volume 91.5 fL (80-100); Monocytes Absolute Auto 400 /uL (0-900); Monocytes Percent Auto 9.2 % (3-14); Neutrophils Absolute Auto 1600 /uL (1500-7000); Neutrophils Percent Auto 36.7 % (50-75); Platelet Count 246 X10^3/uL (150-400); Red Blood Cell Count 4.47 X10^6/uL (4.0-5.2); Red Cell Distribution Width 13.2 % (11.6-14.8); White Blood Cell Count 4.4 X10^3/uL (4.5-11.0)
[2021-05-12 08:30] LABS: Hemoglobin A1C% w Est Avg Glu 7.3 % (4.0-6.0)
[2021-05-12 08:33] LABS: Alanine Aminotransferase 26 IU/L (<35); Albumin 4.2 g/dL (3.5-5.0); Albumin Globulin Ratio 1.4 (1.0-2.8); Alkaline Phosphatase 57 U/L (38-126); Aspartate Aminotransferase 27 IU/L (14-36); BUN Creatinine Ratio 33.3 (6-22); Bilirubin Total 0.8 mg/dL (0.2-1.3); Blood Urea Nitrogen 25 mg/dL (7-17); C-Reactive Protein Quant < 0.5 mg/dL (<1.0); Calcium 8.9 mg/dL (8.4-10.2); Carbon Dioxide 27 mmol/L (22-32); Chloride 106 mmol/L (98-107); Cholesterol 165 mg/dL (140-199); Estimated Glomerular Filt Rate > 60.0 mL/min (>60); Globulin 2.9 g/dL (1.7-4.1); Glucose 186 mg/dL (80-110); HDL Cholesterol 54 mg/dL (40-60); HEMOLYSIS < 15 (0-50); LDL Cholesterol Calculated 88 mg/dL (<100); Potassium 3.8 mmol/L (3.4-5.1); Sodium 138 mmol/L (137-145); Total Protein 7.1 g/dL (6.3-8.2); Triglycerides 116 mg/dL (35-150)
[2021-05-12 09:06] LABS: Erythrocyte Sedimentation Rate 9 MM/HR (0-20)
== END ==
PROVIDERS: PCP Student in an Organized Health Care Education/Training Program; Referring Provider Internal Medicine Rheumatology; Visit Provider Internal Medicine Rheumatology
DX: E11.29 Type 2 diabetes mellitus with other diabetic kidney complication (principal); E11.9 Type 2 diabetes mellitus without complications; E11.69 Type 2 diabetes mellitus with other specified complication; E78.5 Hyperlipidemia, unspecified; R80.9 Proteinuria, unspecified; Z79.4 Long term (current) use of insulin
CPT/HCPCS: 80053; 80061; 83036; 85025; 85651; 86140

== ENCOUNTER → 2021-06-08 11:05 | Outpatient (CLI) | payer OTHER, SELFPAY ==
--- NOTE | 2021-06-08 | DI.RAD.S_ITS ---
PROCEDURE: XR JOINT SURVEY INDICATIONS: upper extremity M05.79 Rheumatoid Arthritis TECHNIQUE: 1 view(s) of the right and left wrist and hands acquired. COMPARISON: None. FINDINGS: Bones: No fractures or dislocations. No suspicious bony lesions. No osseous erosive changes. No periarticular osteopenia. 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 Soft tissues: No suspicious soft tissue calcifications. IMPRESSION: No osseous erosive changes or periarticular osteopenia. Dictated by: Subha Vega MD, PhD on 06/08/2021 at 14:55 Approved by: Subha Vega MD, PhD on 06/08/2021 at 14:56
== END ==
PROVIDERS: PCP Student in an Organized Health Care Education/Training Program; Referring Provider Student in an Organized Health Care Education/Training Program; Visit Provider Student in an Organized Health Care Education/Training Program
DX: M85.89 Other specified disorders of bone density and structure, multiple sites (principal); Z13.820 Encounter for screening for osteoporosis; Z78.0 Asymptomatic menopausal state; M05.79 Rheumatoid arthritis with rheumatoid factor of multiple sites without organ or systems involvement; M18.0 Bilateral primary osteoarthritis of first carpometacarpal joints
CPT/HCPCS: 77077; 77080

== ENCOUNTER → 2021-06-11 12:15 | Outpatient (CLI) | payer OTHER, SELFPAY ==
[2021-06-11 13:46] LABS: Add Manual Diff / Slide Review NO; Basophils Absolute Auto 100 /uL (0-100); Basophils Percent Auto 1.4 % (0-2); Eosinophils Absolute Auto 300 /uL (0-450); Hematocrit 41.5 % (36-46); Hemoglobin 14.2 g/dL (12.0-16.0); Lymphocytes Absolute Auto 2100 /uL (1100-4500); Lymphocytes Percent Auto 37.3 % (25-40); Mean Corpuscular HGB Conc 34.3 % (30-36); Mean Corpuscular Hemoglobin 31.4 PG (26-34); Mean Corpuscular Volume 91.4 fL (80-100); Monocytes Absolute Auto 600 /uL (0-900); Monocytes Percent Auto 10.9 % (3-14); Neutrophils Absolute Auto 2500 /uL (1500-7000); Neutrophils Percent Auto 45.4 % (50-75); Platelet Count 276 X10^3/uL (150-400); Red Blood Cell Count 4.54 X10^6/uL (4.0-5.2); Red Cell Distribution Width 13.5 % (11.6-14.8); White Blood Cell Count 5.5 X10^3/uL (4.5-11.0)
== END ==
PROVIDERS: PCP Student in an Organized Health Care Education/Training Program; Referring Provider Physician Assistant; Visit Provider Physician Assistant
DX: M05.79 Rheumatoid arthritis with rheumatoid factor of multiple sites without organ or systems involvement (principal)
CPT/HCPCS: 36415; 85025

== ENCOUNTER → 2021-08-21 08:13 | Outpatient (CLI) | payer OTHER, SELFPAY ==
[2021-08-21 09:20] LABS: Add Manual Diff / Slide Review NO; Basophils Absolute Auto 0 /uL (0-100); Basophils Percent Auto 1.2 % (0-2); Eosinophils Absolute Auto 200 /uL (0-450); Eosinophils Percent Auto 6.2 % (2-4); Hematocrit 39.3 % (36-46); Hemoglobin 13.5 g/dL (12.0-16.0); Lymphocytes Absolute Auto 1700 /uL (1100-4500); Lymphocytes Percent Auto 43.3 % (25-40); Mean Corpuscular HGB Conc 34.3 % (30-36); Mean Corpuscular Volume 90.4 fL (80-100); Monocytes Absolute Auto 500 /uL (0-900); Monocytes Percent Auto 13.4 % (3-14); Neutrophils Absolute Auto 1400 /uL (1500-7000); Neutrophils Percent Auto 35.9 % (50-75); Platelet Count 250 X10^3/uL (150-400); Red Blood Cell Count 4.35 X10^6/uL (4.0-5.2); Red Cell Distribution Width 13.1 % (11.6-14.8); White Blood Cell Count 3.9 X10^3/uL (4.5-11.0)
[2021-08-21 09:44] LABS: HEMOLYSIS < 15 (0-50); Potassium 3.4 mmol/L (3.4-5.1)
[2021-08-21 09:45] LABS: Erythrocyte Sedimentation Rate 13 MM/HR (0-20)
[2021-08-21 09:47] LABS: Alanine Aminotransferase 26 IU/L (<35); Albumin Globulin Ratio 1.4 (1.0-2.8); Alkaline Phosphatase 59 U/L (38-126); Aspartate Aminotransferase 30 IU/L (14-36); BUN Creatinine Ratio 33.3 (6-22); Blood Urea Nitrogen 26 mg/dL (7-17); C-Reactive Protein Quant 1.3 mg/dL (<1.0); Calcium 9.1 mg/dL (8.4-10.2); Carbon Dioxide 25 mmol/L (22-32); Chloride 104 mmol/L (98-107); Estimated Glomerular Filt Rate > 60 mL/min (>60); Globulin 2.9 g/dL (1.7-4.1); Glucose 194 mg/dL (80-110); Sodium 137 mmol/L (137-145); Total Protein 6.9 g/dL (6.3-8.2)
== END ==
PROVIDERS: PCP Student in an Organized Health Care Education/Training Program; Referring Provider Physician Assistant; Visit Provider Physician Assistant
DX: M05.79 Rheumatoid arthritis with rheumatoid factor of multiple sites without organ or systems involvement (principal)
CPT/HCPCS: 36415; 80053; 85025; 85651; 86140

== ENCOUNTER → 2021-09-16 07:01 | Outpatient (CLI) | payer OTHER, SELFPAY ==
[2021-09-16 07:32] LABS: Add Manual Diff / Slide Review NO; Basophils Absolute Auto 100 /uL (0-100); Basophils Percent Auto 1.1 % (0-2); Eosinophils Absolute Auto 300 /uL (0-450); Eosinophils Percent Auto 6.1 % (2-4); Hematocrit 40.8 % (36-46); Hemoglobin 13.6 g/dL (12.0-16.0); Lymphocytes Absolute Auto 1700 /uL (1100-4500); Lymphocytes Percent Auto 36.7 % (25-40); Mean Corpuscular HGB Conc 33.4 % (30-36); Mean Corpuscular Hemoglobin 30.8 PG (26-34); Mean Corpuscular Volume 92.1 fL (80-100); Monocytes Absolute Auto 500 /uL (0-900); Monocytes Percent Auto 11.7 % (3-14); Neutrophils Absolute Auto 2100 /uL (1500-7000); Neutrophils Percent Auto 44.4 % (50-75); Platelet Count 281 X10^3/uL (150-400); Red Blood Cell Count 4.42 X10^6/uL (4.0-5.2); Red Cell Distribution Width 13.6 % (11.6-14.8); White Blood Cell Count 4.6 X10^3/uL (4.5-11.0)
== END ==
PROVIDERS: PCP Student in an Organized Health Care Education/Training Program; Referring Provider Internal Medicine Rheumatology; Visit Provider Internal Medicine Rheumatology
DX: M05.79 Rheumatoid arthritis with rheumatoid factor of multiple sites without organ or systems involvement (principal); Z79.899 Other long term (current) drug therapy
CPT/HCPCS: 36415; 85025

== ENCOUNTER → 2021-11-18 07:10 | Outpatient (CLI) | payer OTHER, SELFPAY ==
[2021-11-18 07:58] LABS: Add Manual Diff / Slide Review NO; Basophils Absolute Auto 100 /uL (0-100); Basophils Percent Auto 1.4 % (0-2); Eosinophils Absolute Auto 200 /uL (0-450); Eosinophils Percent Auto 4.2 % (2-4); Hematocrit 40.3 % (36-46); Hemoglobin 13.6 g/dL (12.0-16.0); Lymphocytes Absolute Auto 2500 /uL (1100-4500); Lymphocytes Percent Auto 41.8 % (25-40); Mean Corpuscular HGB Conc 33.8 % (30-36); Mean Corpuscular Hemoglobin 30.9 PG (26-34); Mean Corpuscular Volume 91.4 fL (80-100); Monocytes Absolute Auto 800 /uL (0-900); Monocytes Percent Auto 14.3 % (3-14); Neutrophils Absolute Auto 2300 /uL (1500-7000); Neutrophils Percent Auto 38.3 % (50-75); Platelet Count 280 X10^3/uL (150-400); Red Blood Cell Count 4.41 X10^6/uL (4.0-5.2); White Blood Cell Count 5.9 X10^3/uL (4.5-11.0)
[2021-11-18 08:17] LABS: Hemoglobin A1C% w Est Avg Glu 7.2 % (4.0-6.0)
[2021-11-18 08:30] LABS: Erythrocyte Sedimentation Rate 8 MM/HR (0-20)
[2021-11-18 08:49] LABS: Alanine Aminotransferase 22 IU/L (<35); Albumin 4.1 g/dL (3.5-5.0); Albumin Globulin Ratio 1.3 (1.0-2.8); Alkaline Phosphatase 54 U/L (38-126); Aspartate Aminotransferase 25 IU/L (14-36); BUN Creatinine Ratio 37.2 (6-22); Bilirubin Total 1.2 mg/dL (0.2-1.3); Blood Urea Nitrogen 29 mg/dL (7-17); C-Reactive Protein Quant < 0.5 mg/dL (<1.0); Calcium 9.3 mg/dL (8.4-10.2); Carbon Dioxide 27 mmol/L (22-32); Chloride 99 mmol/L (98-107); Estimated Glomerular Filt Rate > 60 mL/min (>60); Globulin 3.2 g/dL (1.7-4.1); Glucose 151 mg/dL (80-110); HEMOLYSIS < 15 (0-50); Potassium 3.3 mmol/L (3.4-5.1); Sodium 138 mmol/L (137-145); Total Protein 7.3 g/dL (6.3-8.2)
== END ==
PROVIDERS: PCP Student in an Organized Health Care Education/Training Program; Referring Provider Physician Assistant; Visit Provider Physician Assistant
DX: E11.29 Type 2 diabetes mellitus with other diabetic kidney complication (principal); E11.9 Type 2 diabetes mellitus without complications; M05.79 Rheumatoid arthritis with rheumatoid factor of multiple sites without organ or systems involvement; R80.9 Proteinuria, unspecified
CPT/HCPCS: 36415; 80053; 83036; 85025; 85651; 86140

== ENCOUNTER → 2021-11-25 12:09 | Outpatient (CLI) | payer OTHER, SELFPAY ==
--- NOTE | 2021-11-25 | DI.RAD.S_ITS ---
PROCEDURE: XR ANKLE RT MIN 3V INDICATIONS: strain of right achilles tendon TECHNIQUE: 3 views of the ankle were acquired. COMPARISON: [facility], , ANKLE 3 VIEWS LEFT, 11/11/2010, 16:31. FINDINGS: Bones: No fractures or dislocations. Ankle mortise is normally aligned. No suspicious bony lesions. Calcaneal spurring. Soft tissues: Small tibiotalar joint effusion. Achilles tendon appears thickened distally at the Achilles tendon insertion to calcaneus. IMPRESSION: 1. Thickening of the distal Achilles tendon at the calcaneal insertion, suspicious for tendon tear or tendinitis. 2. Mild degenerative joint disease. 3. Calcaneal spurring. Dictated by: Dustin Bhandari M.D. on 11/25/2021 at 15:05 Approved by: Dustin Bhandari M.D. on 11/25/2021 at 15:07
[2021-11-25 13:00] LABS: Creatinine Urine Random 67.7 mg/dL
[2021-11-25 13:07] LABS: Microalbumi Creatinin Ratio Ur 42.8 ug/mg CR (<30); Microalbumin Urine Random 2.9 mg/dL (0-1.6)
== END ==
PROVIDERS: PCP Student in an Organized Health Care Education/Training Program; Referring Provider Student in an Organized Health Care Education/Training Program; Visit Provider Student in an Organized Health Care Education/Training Program
DX: S86.011A Strain of right Achilles tendon, initial encounter (principal); E11.29 Type 2 diabetes mellitus with other diabetic kidney complication; E11.9 Type 2 diabetes mellitus without complications; R80.9 Proteinuria, unspecified
CPT/HCPCS: 73610; 82043; 82570

== ENCOUNTER → 2022-01-06 12:41 | Outpatient (CLI) | payer OTHER, SELFPAY ==
--- NOTE | 2022-01-06 12:44 | DI.MG.S_ITS ---
BILATERAL DIGITAL SCREENING MAMMOGRAM 3D/2D WITH CAD: 01/06/2022 CLINICAL: Routine screening. Family history of breast cancer. Comparison is made to exams dated: 01/05/2021 mammogram, 12/24/2019 mammogram, and 12/13/2018 mammogram - [facility]. There are scattered areas of fibroglandular density in both breasts (category b / 25%-50% glandular tissue). Current study was also evaluated with a Computer Aided Detection (CAD) system. There are benign calcifications in both breasts. There also are benign post operative findings in both breasts. No significant masses, calcifications, or other findings are seen in either breast. There has been no significant interval change. IMPRESSION: BENIGN There is no mammographic evidence of malignancy. A 1 year screening mammogram is recommended. Based on the Tyrer Cuzick model (a risk assessment model) the patient's lifetime risk is 2.5% and her 10 year risk is 2.3%. According to the ACR, ACS, and NCCN guidelines, an annual breast MRI exam along with mammogram is recommended if the patient's lifetime risk is 20% or greater. This exam was interpreted at Station ID: [id number]. NOTE: For mammograms, a report in lay terms will be sent to the patient. Approximately 15% of breast malignancies will not be visualized mammographically. In the management of a palpable breast mass, a negative mammogram must not discourage biopsy of a clinically suspicious lesion. Electronically Signed By: Jono oleary/jacklyn:01/06/2022 16:44:56 letter sent: Normal Exam ACR BI-RADS Category 2: Benign Finding(s) 3342F
== END ==
PROVIDERS: PCP Student in an Organized Health Care Education/Training Program; Referring Provider Student in an Organized Health Care Education/Training Program; Visit Provider Student in an Organized Health Care Education/Training Program
DX: Z12.31 Encounter for screening mammogram for malignant neoplasm of breast (principal); Z80.3 Family history of malignant neoplasm of breast
CPT/HCPCS: 77063; 77067

== ENCOUNTER → 2022-02-15 14:32 | Outpatient (CLI) | payer OTHER, SELFPAY ==
[2022-02-15 15:25] LABS: Add Manual Diff / Slide Review NO; Basophils Absolute Auto 100 /uL (0-100); Eosinophils Absolute Auto 200 /uL (0-450); Eosinophils Percent Auto 3.2 % (2-4); Hematocrit 41.8 % (36-46); Hemoglobin 14.3 g/dL (12.0-16.0); Lymphocytes Absolute Auto 2200 /uL (1100-4500); Lymphocytes Percent Auto 34.5 % (25-40); Mean Corpuscular HGB Conc 34.1 % (30-36); Mean Corpuscular Hemoglobin 31.6 PG (26-34); Mean Corpuscular Volume 92.6 fL (80-100); Monocytes Absolute Auto 500 /uL (0-900); Monocytes Percent Auto 8.8 % (3-14); Neutrophils Absolute Auto 3300 /uL (1500-7000); Neutrophils Percent Auto 52.5 % (50-75); Platelet Count 311 X10^3/uL (150-400); Red Blood Cell Count 4.51 X10^6/uL (4.0-5.2); Red Cell Distribution Width 13.7 % (11.6-14.8); White Blood Cell Count 6.3 X10^3/uL (4.5-11.0)
[2022-02-15 15:58] LABS: Erythrocyte Sedimentation Rate 9 MM/HR (0-20)
[2022-02-15 16:48] LABS: Alanine Aminotransferase 26 IU/L (<35); Albumin 4.4 g/dL (3.5-5.0); Albumin Globulin Ratio 1.6 (1.0-2.8); Alkaline Phosphatase 75 U/L (38-126); Aspartate Aminotransferase 29 IU/L (14-36); BUN Creatinine Ratio 39.1 (6-22); Bilirubin Total 0.7 mg/dL (0.2-1.3); Blood Urea Nitrogen 27 mg/dL (7-17); C-Reactive Protein Quant < 0.5 mg/dL (<1.0); Calcium 9.3 mg/dL (8.4-10.2); Carbon Dioxide 25 mmol/L (22-32); Chloride 101 mmol/L (98-107); Estimated Glomerular Filt Rate > 60 mL/min (>60); Globulin 2.8 g/dL (1.7-4.1); Glucose 157 mg/dL (80-110); HEMOLYSIS < 15 (0-50); Potassium 3.6 mmol/L (3.4-5.1); Sodium 138 mmol/L (137-145); Total Protein 7.2 g/dL (6.3-8.2)
== END ==
PROVIDERS: PCP Student in an Organized Health Care Education/Training Program; Referring Provider Internal Medicine Rheumatology; Visit Provider Internal Medicine Rheumatology
DX: M05.79 Rheumatoid arthritis with rheumatoid factor of multiple sites without organ or systems involvement (principal); Z79.899 Other long term (current) drug therapy
CPT/HCPCS: 36415; 80053; 85025; 85651; 86140

== ENCOUNTER → 2022-03-02 09:50 | Outpatient (CLI) | payer OTHER, SELFPAY ==
[2022-03-02 11:29] LABS: COVID19 -Nasal RAPID Negative (Negative)
== END ==
PROVIDERS: PCP Student in an Organized Health Care Education/Training Program; Visit Provider Surgery
DX: Z01.812 Encounter for preprocedural laboratory examination (principal); Z20.822 Contact with and (suspected) exposure to COVID-19
CPT/HCPCS: 87635; C9803

== ENCOUNTER 2022-03-03 06:18 | Day surgery (SDC) | payer OTHER, SELFPAY ==
--- NOTE | 2022-03-03 | PATH_ITS ---
[facility] Accession Number: [id number] No. of containers..01 Tissue . 01 Material submitted: . ileum - ILEOCECAL POLYP . 01 Diagnosis: Ileocecal Polyp, Biopsy: Tubular adenoma. MRV 03/09/2022 1319 Local . 01 Electronically signed: . Carrie Plascencia MD, Pathologist NPI- [id number] . 01 Gross description: . ILEOCECAL POLYP: Received in formalin are multiple fragment(s) of riley, soft tissue measuring 0.1 x 0.1 x 0.1 cm to 0.3 x 0.2 x 0.2 cm submitted entirely in 1 cassette(s) /AG 03/07/2022 2228 Local . 01 Pathologist provided ICD-10: Z12.11, D12.0 . 01 CPT . 874431 Specimen Comment: A courtesy copy of this report has been sent to [phone] Performed at: 01 [facility] [address] [place] [address] [address], [place], [place] [id number] MD Omar Paez MD Phone: [phone]
[2022-03-03] MEDS: LACTATED RINGERS 1,000 ML 42 ML IV (06:51)
[2022-03-03 07:16] VITALS: BP 163/91; PULSE 71; RESP 16; TEMP 36.5; O2SAT 98; BMI 32.5
--- NOTE | 2022-03-03 07:48 | P.HP_ITS ---
History of Present Illness History of Present Illness Date Patient Seen: 03/03/22 Time Patient Seen: 07:48 Chief complaint: SCREENING COLONOSCOPY Narrative: Sonia is a 76-year-old woman who is here for a screening colonoscopy. She had a colonoscopy [address] Bishop and she believes no polyps were found. She believes she has frequent hemorrhoids that bleed and passed clots. No known family history of colon cancer. Patient History Medical History (Updated 03/03/22 @ 07:55 by Crow Ruelas MD) Abnormal Pap smear of cervix (1977) Ankle pain Anxiety Asthma Chicken pox Chronic cough Chronic headaches CTS (carpal tunnel syndrome) Depression Diabetes mellitus Foot pain Hayfever History of heavy periods (1959) Infertility (1974) Irregular periods/menstrual cycles (1959) Measles Migraines Rosacea Surgical History (Updated 04/16/20 @ 08:48 by [facility]) Anesthesia complication History of ankle surgery History of back surgery History of bladder surgery History of breast surgery History of colonoscopy History of eye surgery History of eyelid surgery History of gynecologic surgery History of hand surgery History of hysterectomy History of right knee surgery History of tonsillectomy History of tooth extraction History of urinary tract surgery Status post right foot surgery Surgical history of tubal ligation Family & Social History Family History Brother Age: 84 Skin cancer Hypertension High cholesterol Asthma COPD (chronic obstructive pulmonary disease) Heart defect Brother Age: 78 Skin cancer Hypertension S/P triple vessel bypass Father Skin cancer Hypertension Stroke Aortic aneurysm Grandfather Diabetes mellitus Stroke Mother Skin cancer Heart disease Hypertension Stroke Heart failure Brother SIDS (sudden infant syndrome) Grandmother Heart failure Grandfather Stroke Grandmother No problems noted. Social History: household members none Tobacco & Substance use: Smoking Status Never smoker alcohol intake current alcohol intake frequency holiday/special occasion Substance Use Type does not use Meds Home Medications and Allergies Home Medications Medication Instructions Recorded Confirmed Type loratadine 10 mg disintegrating 10 mg PO QDAY ##0 12/09/11 03/03/22 History tablet (Claritin RediTabs) aspirin 81 mg tablet,delayed 81 mg PO DAILY 10/13/18 03/03/22 History release etanercept 50 mg/mL (1 mL) 50 mg SUBCUT QWEEK 12/20/18 03/03/22 History subcutaneous syringe (Enbrel) albuterol sulfate 90 mcg/actuation 1 puff inhalation Q4H PRN 05/26/20 03/03/22 Rx aerosol inhaler (Ventolin HFA) shortness of breath or wheezing #18 grams peak flow meter #1 ea 06/10/20 12/08/21 Rx amlodipine 5 mg tablet 5 mg PO DAILY #90 tabs 05/17/21 03/03/22 Rx cyclobenzaprine 10 mg tablet 10 mg PO Q6H PRN muscle spasm #60 05/17/21 03/03/22 Rx tabs lisinopril 20 1 tab PO DAILY #90 tabs 05/17/21 03/03/22 Rx mg-hydrochlorothiazide 25 mg tablet metoprolol tartrate 100 mg tablet 100 mg PO BID #180 tabs 05/17/21 03/03/22 Rx montelukast 10 mg tablet 10 mg PO QDAY #90 tabs 05/17/21 03/03/22 Rx (Singulair) simvastatin 40 mg tablet (Zocor) 40 mg PO Q DAY #90 tabs 05/17/21 03/03/22 Rx metformin 750 mg tablet,extended 750 mg PO TIDWMEAL #270 tabs 12/08/21 03/03/22 Rx release 24 hr insulin lispro 100 unit/mL 8 unit (0.08 mL) SUBCUT QAC #36 mL 02/08/22 03/03/22 Rx subcutaneous pen Allergies Allergy/AdvReac Type Severity Reaction Status Date / Time propoxyphene [PROPOXYPHENE] Allergy Intermediate Itching Verified 03/03/22 07:08 Tetanus Vaccines and Toxoid Allergy Intermediate BLACK OUT Verified 03/03/22 07:08 [TETANUS VACCINES & TOXOID] cephalexin [CEPHALEXIN] Allergy Mild PT NOT SURE Verified 03/03/22 07:08 adhesive [ADHESIVE] AdvReac Severe ITCHY Verified 03/03/22 07:08 Exam Vital Signs (past 8 hours): - 03/03/22 07:16 Temperature 97.7 F Pulse Rate 71 Respiratory Rate 16 Blood Pressure 163/91 H Pulse Oximetry 98 Oxygen Delivery Method Room Air Oxygen Delivery Method Room Air Const General: No acute distress Assessment & Plan Assessment and plan (1) History of colon polyps: Status: Acute Plan 76-year-old woman who is here for colonoscopy. No family history of colon cancer. We reviewed the risks and benefits of colonoscopy and she would like to proceed. Time Spent With Patient Critical Care time: I spent a total of [] minutes of critical care time on this patient's care today; this time is exclusive of procedural time.
--- NOTE | 2022-03-03 08:33 | PM.OP.COLON ---
Operative Date/Time/Diagnoses Date of procedure: 03/03/22 Time of procedure: 08:33 Pre-op diagnosis: History of polyps Post-op diagnosis: same Procedure & Clinicians Study performed: Colonoscopy Same procedure as scheduled: Yes Surgeon: Crow Ruelas Procedure Notes Procedure in detail: Surgeon: Crow Ruelas MD Anesthesia: Erica Delgado Procedure: The patient was brought to the endoscopy suite, placed in left lateral decubitus position. The patient was connected to monitoring devices. A time-out was performed. Sedation was administered. Once the patient was adequately sedated, a digital rectal exam was performed and was normal. The scope was then inserted and advanced to the cecum where the appendiceal orifice was identified and photographed. The scope was then slowly withdrawn over greater than 6 minutes. The mucosa was thoroughly inspected. There appeared to be a very flat ill-defined polyp on the ileocecal valve. A saline lift was performed and portions of the polyp were removed with a cold snare. To small additional fragments of polypoid tissue was removed with the Jumbo forceps. The scope was retroflexed in the rectum. There was some mild internal hemorrhoids. The scope was straightened and removed. The patient was awakened and brought to recovery. Scope withdrawal time: 19 minutes Sedation time: 30 minutes EBL: 5 mL Findings: Flat polyp on ileocecal valve Post-procedure Disposition: PACU
[2022-03-03 08:39] VITALS: BP 125/54; BP 130/62; PULSE 61; PULSE 63; RESP 18; TEMP 36.6; O2SAT 99
[2022-03-03 08:44] VITALS: BP 138/76; PULSE 61; RESP 18; O2SAT 98
[2022-03-03 08:54] VITALS: BP 137/73; PULSE 62; RESP 18; TEMP 36.1; O2SAT 99
[2022-03-03 09:00] VITALS: BP 118/88; PULSE 64; RESP 18; TEMP 36.1; O2SAT 99
== END 2022-03-03 09:19 | disposition home or self-care (01) ==
PROVIDERS: PCP Student in an Organized Health Care Education/Training Program; Referring Provider Surgery; Visit Provider Surgery
PROC: 0DJD8ZZ Inspection of Lower Intestinal Tract, Via Natural or Artificial Opening Endoscopic (ICD-10-PCS; CPT 45378; principal; 2022-03-03 07:45)
DX: Z12.11 Encounter for screening for malignant neoplasm of colon (principal); Z86.010 Personal history of colon polyps; D12.0 Benign neoplasm of cecum
CPT/HCPCS: 45381; 45385; J2704

== ENCOUNTER → 2022-03-30 11:09 | Outpatient (CLI) | payer OTHER, SELFPAY ==
[2022-03-30 12:18] LABS: Hemoglobin A1C% w Est Avg Glu 6.9 % (4.0-6.0)
[2022-03-30 12:39] LABS: Blood Urea Nitrogen 20 mg/dL (7-17); Calcium 9.5 mg/dL (8.4-10.2); Carbon Dioxide 30 mmol/L (22-32); Chloride 100 mmol/L (98-107); Estimated Glomerular Filt Rate > 60 mL/min (>60); Glucose 190 mg/dL (80-110); HEMOLYSIS < 15 (0-50); Potassium 3.6 mmol/L (3.4-5.1); Sodium 140 mmol/L (137-145)
[2022-03-30 16:03] LABS: Creatinine Urine Random 54.5 mg/dL
[2022-03-30 16:09] LABS: Microalbumin Urine Random 1.2 mg/dL (0-1.6)
== END ==
PROVIDERS: PCP Student in an Organized Health Care Education/Training Program; Referring Provider Student in an Organized Health Care Education/Training Program; Visit Provider Student in an Organized Health Care Education/Training Program
DX: E11.29 Type 2 diabetes mellitus with other diabetic kidney complication (principal); R80.9 Proteinuria, unspecified; Z79.4 Long term (current) use of insulin
CPT/HCPCS: 36415; 80048; 82043; 82570; 83036

== ENCOUNTER → 2022-04-05 13:46 | Outpatient (CLI) | payer OTHER, SELFPAY ==
[2022-04-05 14:34] LABS: COVID19 -Nasal RAPID Negative (Negative)
== END ==
PROVIDERS: PCP Student in an Organized Health Care Education/Training Program; Referring Provider Podiatrist; Visit Provider Podiatrist
DX: Z01.818 Encounter for other preprocedural examination (principal); Z20.822 Contact with and (suspected) exposure to COVID-19
CPT/HCPCS: 87635; 93005; C9803

== ENCOUNTER 2022-04-08 08:42 | Day surgery (SDC) | payer OTHER, SELFPAY ==
[2022-04-07 07:09] VITALS: BMI 33.7
[2022-04-08] VITALS (7 sets, daily range): BP systolic 94–149; BP diastolic 45–87; PULSE 66–72; RESP 12–20; TEMP 36.1–37.1; O2SAT 98–100; BMI 33.7
[2022-04-08] MEDS: LACTATED RINGERS 1,000 ML 42 ML IV (09:24)
--- NOTE | 2022-04-08 11:07 | P.OP_ITS ---
Operative Date/Time/Diagnoses Date of procedure: 04/08/22 Time of procedure: 13:56 Pre-op diagnosis: Right posterior heel spur with Achilles tendonitis Post-op diagnosis: same Procedure & Clinicians Procedure: Right retrocalcaneal exostectomy with Achilles debridement and reanchoring Same procedure as scheduled: Yes Indications: 76-year-old female with ongoing pain to the posterior right heel and Achilles tendon. Conservative measures have failed to alleviate her pain and she wished to have surgical intervention at this time. Spoke with the risks, potential complications, alternatives, and expected outcomes. Consent was signed, no contraindications to the procedure at this time. Surgeon: Lois Wilson Click Yes if Unassisted: Yes Anesthesia Type: General Operative Notes Closure Type: primary Specimen(s): none sent Prosthetic devices, grafts, tissues, transplants, or devices: Ar[employer]rex Speed Bridge anchor system Estimated Blood Loss (mL): 20 Blood products transfused: none Tourniquet time (min): 57 Procedure in detail: The patient was brought to the operating room. On the [facility] general anesthesia was rendered by the anesthesiologist. Next she was carefully positioned prone on operative table, well padded and appropriately aligned. The right foot and ankle were prepped and draped in the usual aseptic manner. Local anesthesia was rendered to the posterior heel and distal Achilles. The tourniquet was inflated to the right thigh. After a check of anesthesia an incision was made on the posterior aspect of the right calcaneus at the insertion point of the Achilles to the heel. The incision was deepened through subcutaneous tissues being careful to identify and retract all vital neural and vascular structures. All bleeders were cauterized and ligated as necessary. The capsule surrounding the Achilles tendon was gently opened and reflected and the enlarged insertion point of the Achilles tendon was noted. The insertion was divided centrally and Achilles tendon was reflected laterally and medially. This exposed areas of the tendon that were significantly thickened. Some of the extraordinarily thickened scarred areas of the tendon distally were also reduced. An osteotome was used to chamfer away the posterior spurring of the calcaneus. This was then gently smoothed with a rasp. The area was irrigated with copious amounts of normal sterile saline. Following the technique of the [employer] SpeedBridge, drill holes were placed proximally on the posterior aspect of the calcaneus medially and laterally. This was then tapped and each anchor was inserted. Once appropriately seated the FiberWire attached to the anchor was brought up through the Achilles tendon at the appropriate location. Next, distally on the calcaneus another set of 2 holes were drilled in the same manner and tapped. Following the speed bridge protocol, under appropriate tension threading each of the 2 sides of the more proximal anchors' suture, this was then placed in each of the holes. Each of these 2 anchors were then seated appropriately and was under good tension. Excess fiber tape was trimmed. 3-0 Vicryl was used to repair the remainder of the Achilles tendon and range of motion was available and strong. The area was irrigated once more with normal sterile saline and the tourniquet was deflated. A prompt hyperemic response was seen to the foot and ankle. Tendon capsule was then repaired and subcutaneous closure was performed with Vicryl. Skin was closed with nylon and she was placed in a sterile lightly compressive dressing. She was then also placed in her postoperative boot. She was transferred to the PACU with vital signs stable and vascular status intact. Complications: none Post-operative Condition: stable Disposition: PACU Plan for aftercare: Following a period of postoperative monitoring, the patient will be discharged to home on written and oral postoperative instructions including keeping the dressing dry and intact, no weight to the surgical foot, icing and elevating the foot when seated home. DVT prevention techniques have been reviewed. For the 1st postoperative visit the dressing will be changed and close to the 3rd postoperative week we will likely remove the sutures.
--- NOTE | 2022-04-08 11:07 | PM.PREOP ---
Pre-operative Note COVID-19 COVID-19 status: Negative Result date/Date tested (Pos, Neg/Pending): 04/05/22 Interval Note History & Physical reviewed/Exam performed by Physician: Yes Changes to H&P: No
[2022-04-08] MEDS: CLINDAMYCIN 600 MG/50 ML PIGGYBACK 50 MG IV (11:35)
--- NOTE | 2022-04-08 11:52 | SUR.OPER ---
Prone on padded OR bed, head in foam head support, gel chest rolls, gel pad under knees, pillow under right lower leg and in control of the Surgeon. Left lower leg on pillow and taped down to secure. Toes free of pressure, arms secured on padded arm boards at <90 degrees abduction with gel pads under each lower arm. Safety belt at torso.
[2022-04-08] MEDS: BUPIVACAINE 0.25% (PF) VIAL 10 ML INJ (12:05)
== END 2022-04-08 14:45 | disposition admitted as inpatient to this hospital (09) ==
PROVIDERS: PCP Student in an Organized Health Care Education/Training Program; Referring Provider Podiatrist; Visit Provider Podiatrist
PROC: (CPT 27650; principal; 2022-04-08 10:30)
DX: M76.61 Achilles tendinitis, right leg (principal); M77.31 Calcaneal spur, right foot; E11.9 Type 2 diabetes mellitus without complications; M06.9 Rheumatoid arthritis, unspecified; Z79.4 Long term (current) use of insulin; Z79.84 Long term (current) use of oral hypoglycemic drugs
CPT/HCPCS: 27650; 28119; J0330; J2405

== ENCOUNTER → 2022-05-12 12:55 | Outpatient (CLI) | payer OTHER, SELFPAY ==
--- NOTE | 2022-05-12 | DI.MRI.S_ITS ---
PROCEDURE: MR ANKLE RT WO CON INDICATIONS: S/P ACHILLES SURGERY / RULE OUT ACHILLES RUPTURE TECHNIQUE: Noncontrast sagittal T1 spin echo and T2 fast spin echo with fat saturation, axial proton density fast spin echo and T2 fast spin echo with fat saturation, coronal T1 spin echo and T2 fast spin echo with fat saturation through the ankle/hindfoot. COMPARISON: None. FINDINGS: Image quality: Diagnostic. Patient motion is noted. Bones and joints: There is diffuse soft tissue swelling around midfoot and hindfoot. Small amount of tibiotalar joint effusion is seen, no gross loose bodies. Postsurgical changes are noted in posterior calcaneus with susceptibility artifact. Mild edema involving posterior calcaneus adjacent to the surgical hardware is also seen. No other area of abnormal marrow signal. No acute fracture or dislocation. No suspicious bony lesions. Midfoot and hindfoot joint osteoarthritic changes are seen. No gross osteochondral injuries of talar dome. Medial structures: The posterior tibialis, flexor digitorum longus, and flexor hallucis longus tendons are intact. The posterior tibial neurovascular bundle appears normal within the tarsal tunnel, without extrinsic mass effect. The deep layer (anterior and posterior tibiotalar ligaments) and superficial layer (tibionavicular, tibiospring, and tibiocalcaneal ligaments) of the deltoid ligament appear normal. The spring ligament components (superomedial calcaneonavicular, medioplantar oblique calcaneonavicular, and inferoplantar longitudinal ligaments) are intact. Lateral structures: The anterior talofibular, calcaneofibular, and posterior talofibular ligaments appear mildly thickened. More superiorly, the anterior and posterior tibiofibular ligaments appear intact, as is the intermalleolar ligament. The tibiofibular syndesmosis is normal in width at 2 mm or less. The peroneus longus and brevis tendons demonstrate normal location and morphology. Adjacent bony peroneal tubercle and retrotrochlear prominence are normal in size. The sinus tarsi demonstrates normal fatty signal, without edema, fibrosis, or cyst formation. Visualized sinus tarsi components (cervical ligament, interosseous talocalcaneal ligament, roots of the inferior extensor retinaculum) appear normal. The calcaneonavicular and calcaneocuboid components of the bifurcate ligament appear intact. The dorsal calcaneocuboid ligament appears intact. Anterior structures: The tibialis anterior, extensor hallucis longus, and extensor digitorum longus tendons appear intact. The dorsal talonavicular ligament appears intact. Posterior and plantar structures: Postsurgical changes are seen from prior Achilles tendon repair. There is suggestion of full-thickness rupture of Achilles tendon at its insertion of posterior calcaneus with up to 5.3 cm proximal retraction of torn tendon fibers and surrounding soft tissue edema and fluid. Medial and lateral bands of the plantar fascia are of normal thickness. No abductor digiti quinti muscle atrophy to suggest Garza neuropathy. IMPRESSION: 1. Prior Achilles tendon repair with postsurgical changes. Mild marrow edema involving posterior calcaneus. No acute fracture or dislocation. [id number] midfoot and hindfoot joint osteoarthritis. No osteochondral injuries of talar dome. Small to moderate tibiotalar joint effusion, no gross loose bodies. 2. Full-thickness rupture of distal Achilles tendon at its insertion on posterior calcaneus with up to 5.3 cm proximal retraction of torn tendon fibers and surrounding soft tissue edema and fluid. 3. Low-grade sprain/intrasubstance partial-thickness tear involving anterior and posterior talofibular ligaments and calcaneofibular ligament. Dictated by: Adan Davis M.D. on 05/12/2022 at 16:57 Approved by: Adan Davis M.D. on 05/12/2022 at 17:07
--- NOTE | 2022-05-12 15:44 | DI.RAD.S_ITS ---
PROCEDURE: XR ANKLE RT MIN 3V INDICATIONS: ANKLE PAIN TECHNIQUE: 3 views of the ankle were acquired. COMPARISON: [facility], CR, XR ANKLE RT MIN 3V, 11/25/2021, 12:48. [facility], MR, MR ANKLE RT WO CON, 05/12/2022, 14:56. FINDINGS: Bones: No fractures or dislocations. Ankle mortise is normally aligned. No suspicious bony lesions. Soft tissues: No tibiotalar joint effusion. Poor visualization of the kill is tendon shadow.. IMPRESSION: Poor visualization of the Achilles tendon shadow. Please see MR ankle report of 05/12/2022 for further details. Dictated by: Norma Pearson M.D. on 05/12/2022 at 16:55 Approved by: Norma Pearson M.D. on 05/12/2022 at 16:56
== END ==
PROVIDERS: PCP Student in an Organized Health Care Education/Training Program; Referring Provider Podiatrist; Visit Provider Podiatrist
DX: S86.011A Strain of right Achilles tendon, initial encounter (principal); S93.411A Sprain of calcaneofibular ligament of right ankle, initial encounter; S93.491A Sprain of other ligament of right ankle, initial encounter; M19.071 Primary osteoarthritis, right ankle and foot; M25.471 Effusion, right ankle; X58.XXXA Exposure to other specified factors, initial encounter
CPT/HCPCS: 73610; 73721

== ENCOUNTER → 2022-05-16 10:50 | Outpatient (CLI) | payer OTHER, SELFPAY ==
[2022-05-16 12:15] LABS: Add Manual Diff / Slide Review NO; Basophils Absolute Auto 100 /uL (0-100); Basophils Percent Auto 0.9 % (0-2); Eosinophils Absolute Auto 200 /uL (0-450); Eosinophils Percent Auto 3.2 % (2-4); Hematocrit 41.7 % (36-46); Hemoglobin 14.2 g/dL (12.0-16.0); Lymphocytes Absolute Auto 1600 /uL (1100-4500); Lymphocytes Percent Auto 27.8 % (25-40); Mean Corpuscular Hemoglobin 30.8 PG (26-34); Mean Corpuscular Volume 90.5 fL (80-100); Monocytes Absolute Auto 600 /uL (0-900); Monocytes Percent Auto 10.6 % (3-14); Neutrophils Absolute Auto 3400 /uL (1500-7000); Neutrophils Percent Auto 57.5 % (50-75); Platelet Count 347 X10^3/uL (150-400); Red Blood Cell Count 4.61 X10^6/uL (4.0-5.2); Red Cell Distribution Width 13.1 % (11.6-14.8); White Blood Cell Count 5.8 X10^3/uL (4.5-11.0)
[2022-05-16 12:32] LABS: Erythrocyte Sedimentation Rate 20 MM/HR (0-20)
[2022-05-16 12:59] LABS: Alanine Aminotransferase 21 IU/L (<35); Albumin 4.3 g/dL (3.5-5.0); Albumin Globulin Ratio 1.2 (1.0-2.8); Alkaline Phosphatase 62 U/L (38-126); Aspartate Aminotransferase 21 IU/L (14-36); BUN Creatinine Ratio 34.4 (6-22); Bilirubin Total 1.1 mg/dL (0.2-1.3); Blood Urea Nitrogen 21 mg/dL (7-17); C-Reactive Protein Quant < 0.5 mg/dL (<1.0); Calcium 9.5 mg/dL (8.4-10.2); Carbon Dioxide 26 mmol/L (22-32); Chloride 98 mmol/L (98-107); Estimated Glomerular Filt Rate > 60 mL/min (>60); Globulin 3.5 g/dL (1.7-4.1); Glucose 172 mg/dL (80-110); HEMOLYSIS < 15 (0-50); Potassium 3.5 mmol/L (3.4-5.1); Sodium 137 mmol/L (137-145); Total Protein 7.8 g/dL (6.3-8.2)
== END ==
PROVIDERS: PCP Student in an Organized Health Care Education/Training Program; Referring Provider Physician Assistant; Visit Provider Physician Assistant
DX: M05.79 Rheumatoid arthritis with rheumatoid factor of multiple sites without organ or systems involvement (principal)
CPT/HCPCS: 36415; 80053; 85025; 85651; 86140

== ENCOUNTER 2022-05-20 06:46 | Day surgery (SDC) | payer OTHER, SELFPAY ==
[2022-05-18 12:16] VITALS: BMI 34.6
[2022-05-20 07:30] VITALS: BP 132/79; PULSE 65; RESP 20; TEMP 36.5; O2SAT 97; BMI 34.6
--- NOTE | 2022-05-20 07:54 | SUR.PREOP ---
Informed patient of need to postpone surgery due to equipment issue. Apologized to patient for stress and inconvenience. Giulia Degroot, Director of PACU services, speaking to patient. Dr. Wilson informed and also speaking to patient about future arrangements. Called patient's ride to transfer home. Discharged from Pre-op.
== END 2022-05-20 06:50 | disposition home or self-care (01) ==
PROVIDERS: PCP Student in an Organized Health Care Education/Training Program; Referring Provider Student in an Organized Health Care Education/Training Program; Visit Provider Podiatrist
DX: S86.011A Strain of right Achilles tendon, initial encounter (principal); M06.9 Rheumatoid arthritis, unspecified; E11.9 Type 2 diabetes mellitus without complications; Z79.4 Long term (current) use of insulin; Z53.09 Procedure and treatment not carried out because of other contraindication
CPT/HCPCS: J2405; J2704; J3010

== ENCOUNTER 2022-06-03 10:33 | Day surgery (SDC) | payer OTHER, SELFPAY ==
[2022-05-26 11:47] VITALS: BMI 34.6
[2022-06-03] VITALS (8 sets, daily range): BP systolic 112–145; BP diastolic 57–85; PULSE 67–81; RESP 11–24; TEMP 36.9–37.5; O2SAT 95–99; BMI 34.6
[2022-06-03] MEDS: LACTATED RINGERS 1,000 ML 42 ML IV ×2 (12:34→16:27)
--- NOTE | 2022-06-03 14:37 | PM.PREOP ---
Pre-operative Note Interval Note History & Physical reviewed/Exam performed by Physician: Yes Changes to H&P: No
--- NOTE | 2022-06-03 14:50 | SUR.PREOP ---
Popliteal nerve block to right leg administered by Dr. Valladares. tolerated well, VSS.
[2022-06-03] MEDS: CLINDAMYCIN 600 MG/50 ML PIGGYBACK 50 MG IV (15:05)
--- NOTE | 2022-06-03 15:24 | SUR.OPER ---
Prone on padded OR bed, head in foam head support, gel chest rolls, pillow supporting hips, pillow under knees, pillows under lower legs, toes free of pressure, arms secured on padded arm boards at <90 degrees abduction. Safety belt at thigh and tape over thoracic area of back. Breasts moved to center, between bolsters.
[2022-06-03] MEDS: ONDANSETRON 4 MG/2 ML INJ IV (17:00)
[2022-06-03] MEDS: HYDROMORPHONE 2 MG INJ IV ×2 (17:00→17:04)
[2022-06-03] MEDS: OXYCODONE/ACETAMINOPHEN 5/325 TABLET 1 TAB PO (17:09)
--- NOTE | 2022-06-03 17:12 | P.OP_ITS ---
Operative Date/Time/Diagnoses Date of procedure: 06/03/22 Time of procedure: 17:12 Pre-op diagnosis: Right Achilles rupture Post-op diagnosis: same Procedure & Clinicians Procedure: Right Achilles rupture repair Same procedure as scheduled: Yes Indications: 76 yo female sustained what appeared to be an Achilles rupture due to a slip on the leg while recovering from a prior retrocalcaneal exostectomy with Achilles tendon debridement and reanchoring. MRI showed significant gapping and possible distal avulsion from the calcaneus, and exam showed palpable gap. Discussed detailed conservative versus surgical measures for treatment and the decision was made to undergo surgical treatment. There was a delay in repair due to temporary operating room closure, but during that time she was kept plantarflexed and non-weightbearing. We discussed the risks, potential complications, expected outcomes, alternatives. Consent was signed, no contrai ndications to the procedure at this time. Surgeon: Lois Wilson Click Yes if Unassisted: Yes Anesthesia Type: General and Peripheral nerve block Operative Notes Closure Type: primary Specimen(s): none sent Prosthetic devices, grafts, tissues, transplants, or devices: 2-0 Fiberwire Estimated Blood Loss (mL): 20 Blood products transfused: none Tourniquet time (min): 56 Procedure in detail: After a lower extremity block was performed by Anesthesia in the preoperative holding area the patient was brought to the operating room. On the gurney, general anesthesia was rendered by the anesthesiologist. Next she was carefully positioned prone on operative table, well padded and appropriately aligned. A tourniquet was placed around the right thigh. The foot and ankle were prepped and draped in the usual aseptic manner. The tourniquet was inflated to the thigh. After a check of anesthesia an incision was made on the posterior aspect of the right calcaneus at the insertion point of the Achilles to the heel, following the prior incisional scar and extending it just proximally as needed. The incision was deepened through subcutaneous tissues being careful to identify and retract all vital neural and vascular structures. All bleeders were cauterized and ligated as necessary. The paratenon surrounding the Achilles tendon was intact except in two areas, medially and laterally, at the midsubstance of the area of the rupture. There was remodelling and healing already taking place along the remaining intact Achilles which was the most superficial aspect, as it had appeared to reinforce strongly within the intact paratenon. I gently opened and reflected the two linear openings on the sides and gently removed any free hematoma. The anchors and SpeedBridge were intact at the heel distally and had not been pulled out or disturbed in the injury. With the strong, thick paratenon and it's merger with the Achilles tendon edges, this did not appear to need added graft nor anchoring. Because of the linearity of the vertical open patches on either side, this provided good exposure to include the edges of the tendon plus the thick paratenon as a strut for linear structural healing. 2-0 Fiberwire was used deeply to contain and tubularize in a locking technique the exposed areas of the tendon and locked this onto the strong thick paratenon. This was done on either side, completing the repair of the tears. This was reinforced with Vicryl 3-0. The area was irrigated with copious amounts of normal sterile saline. Dorsiflexion and plantarflexion was available and strong. Care was taken to not make proud knots. 4-0 Vicryl was used to reinforce and repair the remainder of the Achilles tendon/paratenon coverage with subcutaneous tissues. The tourniquet was deflated. A prompt hyperemic response was seen to the foot and ankle. Skin was closed with nylon and she was placed in a sterile lightly compressive dressing and well-padded posterior splint in slight plantarflexion. She was transferred to the PACU with vital signs stable and vascular status intact. Complications: none Post-operative Condition: stable Disposition: PACU Plan for aftercare: Following a period of postoperative monitoring, the patient will be discharged to home on written and oral postoperative instructions including keeping the dressing dry and intact, no weight to the surgical foot, periodic icing behind the knee is permitted, and elevating the foot when seated at home should be performed. DVT prevention techniques have been reviewed. For the 1st postoperative visit the dressing will be changed and close to the 3rd postoperative week we will likely remove the sutures.
== END 2022-06-03 18:05 | disposition home or self-care (01) ==
PROVIDERS: PCP Student in an Organized Health Care Education/Training Program; Referring Provider Podiatrist; Visit Provider Podiatrist
PROC: (CPT 27650; principal; 2022-06-03 13:45)
DX: S86.011A Strain of right Achilles tendon, initial encounter (principal); M06.9 Rheumatoid arthritis, unspecified; E11.9 Type 2 diabetes mellitus without complications; W18.11XA Fall from or off toilet without subsequent striking against object, initial encounter; Z79.4 Long term (current) use of insulin; Z79.84 Long term (current) use of oral hypoglycemic drugs; G89.18 Other acute postprocedural pain
CPT/HCPCS: 27650; 64450; 82962; J1100; J1170; J1885; J2250; J2405; J2704; J3010

== ENCOUNTER → 2022-08-09 09:43 | Outpatient (CLI) | payer OTHER, SELFPAY ==
[2022-08-09 11:21] LABS: Cholesterol 170 mg/dL (140-199); HDL Cholesterol 55 mg/dL (40-60); LDL Cholesterol Calculated 91 mg/dL (<100); Triglycerides 120 mg/dL (35-150)
[2022-08-10 03:15] LABS: Labcorp Hemoglobin (Hb) A1c 7.1 % (4.8-5.6)
== END ==
PROVIDERS: Student in an Organized Health Care Education/Training Program; PCP Pediatrics; Referring Provider Pediatrics; Visit Provider Pediatrics
DX: E11.69 Type 2 diabetes mellitus with other specified complication (principal); E78.5 Hyperlipidemia, unspecified; E11.9 Type 2 diabetes mellitus without complications; Z79.4 Long term (current) use of insulin
CPT/HCPCS: 36415; 80061; 83036

== ENCOUNTER → 2022-08-16 08:49 | Outpatient (CLI) | payer OTHER, SELFPAY ==
[2022-08-16 09:56] LABS: Add Manual Diff / Slide Review NO; Basophils Absolute Auto 100 /uL (0-100); Basophils Percent Auto 0.7 % (0-2); Eosinophils Absolute Auto 200 /uL (0-450); Eosinophils Percent Auto 2.6 % (2-4); Hematocrit 39.3 % (36-46); Hemoglobin 13.6 g/dL (12.0-16.0); Lymphocytes Absolute Auto 2100 /uL (1100-4500); Lymphocytes Percent Auto 26.7 % (25-40); Mean Corpuscular HGB Conc 34.8 % (30-36); Mean Corpuscular Hemoglobin 31.5 PG (26-34); Mean Corpuscular Volume 90.7 fL (80-100); Monocytes Absolute Auto 800 /uL (0-900); Monocytes Percent Auto 10.6 % (3-14); Neutrophils Absolute Auto 4800 /uL (1500-7000); Neutrophils Percent Auto 59.4 % (50-75); Platelet Count 331 X10^3/uL (150-400); Red Blood Cell Count 4.33 X10^6/uL (4.0-5.2); Red Cell Distribution Width 14.6 % (11.6-14.8)
[2022-08-16 10:17] LABS: Erythrocyte Sedimentation Rate 12 MM/HR (0-20)
[2022-08-16 13:05] LABS: Alanine Aminotransferase 21 IU/L (<35); Albumin 4.1 g/dL (3.5-5.0); Albumin Globulin Ratio 1.6 (1.0-2.8); Alkaline Phosphatase 67 U/L (38-126); Aspartate Aminotransferase 22 IU/L (14-36); BUN Creatinine Ratio 38.5 (6-22); Bilirubin Total 0.6 mg/dL (0.2-1.3); Blood Urea Nitrogen 25 mg/dL (7-17); C-Reactive Protein Quant < 0.5 mg/dL (<1.0); Calcium 9.5 mg/dL (8.4-10.2); Carbon Dioxide 28 mmol/L (22-32); Chloride 101 mmol/L (98-107); Estimated Glomerular Filt Rate > 60 mL/min (>60); Globulin 2.6 g/dL (1.7-4.1); Glucose 153 mg/dL (80-110); HEMOLYSIS < 15 (0-50); Sodium 136 mmol/L (137-145); Total Protein 6.7 g/dL (6.3-8.2)
== END ==
PROVIDERS: PCP Pediatrics; Referring Provider Internal Medicine Rheumatology; Visit Provider Internal Medicine Rheumatology
DX: M05.79 Rheumatoid arthritis with rheumatoid factor of multiple sites without organ or systems involvement (principal); Z79.899 Other long term (current) drug therapy
CPT/HCPCS: 36415; 80053; 85025; 85651; 86140

== ENCOUNTER 2022-09-01 06:33 | Day surgery (SDC) | payer OTHER, SELFPAY ==
[2022-09-01 07:13] VITALS: BMI 31.6
[2022-09-01 07:28] VITALS: BP 125/75; PULSE 68; RESP 16; TEMP 37.1; O2SAT 96
[2022-09-01] MEDS: LACTATED RINGERS 1,000 ML 42 ML IV (07:32)
--- NOTE | 2022-09-01 07:41 | PM.HP.1 ---
History of Present Illness History of Present Illness Date Patient Seen: 09/01/22 Time Patient Seen: 07:41 Chief complaint: Dx Colonoscopy Narrative: Sonia returns for her six-month follow-up colonoscopy. In February she had a colonoscopy with resection of a cecal tubular that was very wide based and indistinct. She also complains of hemorrhoids now. [facility] Medical History Abnormal Pap smear of cervix (1977) Ankle pain Anxiety Asthma Chicken pox Chronic cough Chronic headaches CTS (carpal tunnel syndrome) Depression Diabetes mellitus Foot pain Hayfever History of heavy periods (1959) Infertility (1974) Irregular periods/menstrual cycles (1959) Measles Migraines Rosacea Tendonitis, Achilles, right Surgical History Anesthesia complication History of ankle surgery History of back surgery History of bladder surgery History of breast surgery History of colonoscopy History of eye surgery History of eyelid surgery History of gynecologic surgery History of hand surgery History of hysterectomy History of orthopedic surgery (04/08/22) History of right knee surgery History of tonsillectomy History of tooth extraction History of urinary tract surgery Status post right foot surgery Surgical history of tubal ligation Family History Brother Age: 84 Skin cancer Hypertension High cholesterol Asthma COPD (chronic obstructive pulmonary disease) Heart defect Brother Age: 78 Skin cancer Hypertension S/P triple vessel bypass Father Skin cancer Hypertension Stroke Aortic aneurysm Grandfather Diabetes mellitus Stroke Mother Skin cancer Heart disease Hypertension Stroke Heart failure Brother SIDS (sudden syndrome) Grandmother Heart failure Grandfather Stroke Grandmother No problems noted. Social History household members: none Smoking Status: Never smoker alcohol intake: current Meds Home Medications and Allergies Home Medications Medication Instructions Recorded Confirmed Type loratadine 10 mg disintegrating 10 mg PO QDAY ##0 12/09/11 09/01/22 History tablet (Claritin RediTabs) aspirin 81 mg tablet,delayed 81 mg PO DAILY 10/13/18 09/01/22 History release etanercept 50 mg/mL (1 mL) 50 mg SUBCUT QWEEK 12/20/18 09/01/22 History subcutaneous syringe (Enbrel) albuterol sulfate 90 mcg/actuation 1 puff inhalation Q4H PRN 05/26/20 09/01/22 Rx aerosol inhaler (Ventolin HFA) shortness of breath or wheezing #18 grams cyclobenzaprine 10 mg tablet 10 mg PO Q6H PRN muscle spasm #60 05/17/21 09/01/22 Rx tabs insulin lispro 100 unit/mL 8 unit (0.08 mL) SUBCUT QAC #36 mL 02/08/22 09/01/22 Rx subcutaneous pen amlodipine 5 mg tablet 5 mg PO DAILY #90 tabs 05/12/22 09/01/22 Rx lisinopril 20 1 tab PO DAILY #90 tabs 05/12/22 09/01/22 Rx mg-hydrochlorothiazide 25 mg tablet metoprolol tartrate 100 mg tablet 100 mg PO BID #180 tabs 05/12/22 09/01/22 Rx simvastatin 40 mg tablet (Zocor) 40 mg PO Q DAY #90 tabs 05/12/22 09/01/22 Rx montelukast 10 mg tablet 10 mg PO QDAY #90 tabs 05/17/22 09/01/22 Rx (Singulair) One Touch Delica Lanset Device #1 ea 08/09/22 08/29/22 Rx One Touch Ultra Mini Glucose #1 ea 08/09/22 08/29/22 Rx Monitor metformin 750 mg tablet,extended 750 mg PO TIDWMEAL #270 tabs 08/09/22 09/01/22 Rx release 24 hr cyclosporine 0.05 % eye drops in a 1 drp ophthalmic (eye) BID 08/29/22 09/01/22 History dropperette folic acid 1 mg tablet 3 mg PO DAILY 08/29/22 09/01/22 History methotrexate sodium 2.5 mg tablet 2.5 mg PO QWEEK 08/29/22 09/01/22 History blood-glucose sensor (Dexcom G6 #3 ea 08/30/22 08/30/22 Rx Sensor device) blood-glucose transmitter (Dexcom #1 ea 08/30/22 08/30/22 Rx G6 Transmitter device) Allergies Allergy/AdvReac Type Severity Reaction Status Date / Time propoxyphene [PROPOXYPHENE] Allergy Intermediate Itching Verified 09/01/22 07:17 Tetanus Vaccines and Toxoid Allergy Intermediate BLACK OUT Verified 09/01/22 07:17 [TETANUS VACCINES & TOXOID] cephalexin [CEPHALEXIN] Allergy Mild PT NOT SURE Verified 09/01/22 07:17 adhesive [ADHESIVE] AdvReac Severe ITCHY Verified 09/01/22 07:17 Exam Vital Signs (past 8 hours): - 09/01/22 07:28 Temperature 98.8 F Pulse Rate 68 Respiratory Rate 16 Blood Pressure 125/75 Pulse Oximetry 96 Oxygen Delivery Method Room Air Oxygen Delivery Method Room Air Const General: No acute distress Resp Effort & Inspection: normal respiratory effort Assessment & Plan Assessment and plan (1) History of colon polyps: Status: Acute Plan Sonia is a 77-year-old woman who is here for colonoscopy because of history of an indistinct polyp in her cecum. She would also like to have any hemorrhoids banded if seen.
--- NOTE | 2022-09-01 08:29 | PM.OP.COLON ---
Operative Date/Time/Diagnoses Date of procedure: 09/01/22 Time of procedure: 08:29 Pre-op diagnosis: History of cecal polyp Internal hemorrhoids Post-op diagnosis: same Procedure & Clinicians Study performed: Colonoscopy and hemorrhoid banding Same procedure as scheduled: Yes Surgeon: Crow Ruelas Procedure Notes Procedure in detail: Surgeon: Crow Ruelas MD Anesthesia: Madi Trevizo CRNA Procedure: The patient was brought to the endoscopy suite, placed in left lateral decubitus position. The patient was connected to monitoring devices. A time-out was performed. Sedation was administered. Once the patient was adequately sedated, a digital rectal exam was performed and was normal. The scope was then inserted and advanced to the cecum where the appendiceal orifice was identified and photographed. The scope was then slowly withdrawn over greater than 6 minutes. The mucosa was thoroughly inspected. There was no evidence of a polyp in the cecum or anywhere else in the colon. The scope was retroflexed in the rectum. Some internal hemorrhoids were noted. The scope was straightened and removed. Rubber-band ligation was performed of the left lateral internal hemorrhoid column The patient was awakened and brought to recovery. Scope withdrawal time: 10 minute Sedation time: 16 minutes EBL: 3 mL Findings: No evidence residual cecal polyp, mild internal hemorrhoids Post-procedure Disposition: PACU
[2022-09-01 08:31] VITALS: BP 152/73; PULSE 72; RESP 16; TEMP 36.6; O2SAT 96
[2022-09-01 08:35] VITALS: BP 128/67; PULSE 67; RESP 16; O2SAT 94
[2022-09-01 08:41] VITALS: BP 122/65; PULSE 60; RESP 16; O2SAT 96
[2022-09-01 08:47] VITALS: BP 130/71; PULSE 57; RESP 12; TEMP 36.2; O2SAT 97
[2022-09-01 08:57] VITALS: BP 142/54; PULSE 61; RESP 16; TEMP 36.2; O2SAT 96
== END 2022-09-01 09:03 | disposition home or self-care (01) ==
PROVIDERS: PCP Pediatrics; Referring Provider Surgery; Visit Provider Surgery
PROC: 0DJD8ZZ Inspection of Lower Intestinal Tract, Via Natural or Artificial Opening Endoscopic (ICD-10-PCS; CPT 45378; principal; 2022-09-01 07:45)
DX: Z12.11 Encounter for screening for malignant neoplasm of colon (principal); Z86.010 Personal history of colon polyps; K64.8 Other hemorrhoids
CPT/HCPCS: 45378; 46221; 82962; J2704

== ENCOUNTER → 2022-11-22 07:29 | Outpatient (CLI) | payer OTHER, SELFPAY ==
[2022-11-22 08:43] LABS: Add Manual Diff / Slide Review NO; Basophils Absolute Auto 100 /uL (0-100); Basophils Percent Auto 1.4 % (0-2); Eosinophils Absolute Auto 300 /uL (0-450); Eosinophils Percent Auto 5.2 % (2-4); Hemoglobin 13.6 g/dL (12.0-16.0); Lymphocytes Absolute Auto 1600 /uL (1100-4500); Lymphocytes Percent Auto 29.5 % (25-40); Mean Corpuscular HGB Conc 34.8 % (30-36); Mean Corpuscular Hemoglobin 31.6 PG (26-34); Mean Corpuscular Volume 90.6 fL (80-100); Monocytes Absolute Auto 500 /uL (0-900); Monocytes Percent Auto 9.6 % (3-14); Neutrophils Absolute Auto 3000 /uL (1500-7000); Neutrophils Percent Auto 54.3 % (50-75); Platelet Count 270 X10^3/uL (150-400); Red Cell Distribution Width 13.7 % (11.6-14.8); White Blood Cell Count 5.6 X10^3/uL (4.5-11.0)
[2022-11-22 09:12] LABS: Erythrocyte Sedimentation Rate 10 MM/HR (0-20)
[2022-11-22 09:19] LABS: Alanine Aminotransferase 20 IU/L (<35); Albumin 4.1 g/dL (3.5-5.0); Albumin Globulin Ratio 1.6 (1.0-2.8); Alkaline Phosphatase 61 U/L (38-126); Aspartate Aminotransferase 21 IU/L (14-36); BUN Creatinine Ratio 37.7 (6-22); Bilirubin Total 0.7 mg/dL (0.2-1.3); Blood Urea Nitrogen 29 mg/dL (7-17); C-Reactive Protein Quant < 0.5 mg/dL (<1.0); Calcium 9.5 mg/dL (8.4-10.2); Carbon Dioxide 23 mmol/L (22-32); Chloride 104 mmol/L (98-107); Cholesterol 189 mg/dL (140-199); Estimated Glomerular Filt Rate > 60 mL/min (>60); Globulin 2.5 g/dL (1.7-4.1); Glucose 192 mg/dL (80-110); HDL Cholesterol 54 mg/dL (40-60); HEMOLYSIS < 15 (0-50); LDL Cholesterol Calculated 103 mg/dL (<100); Sodium 137 mmol/L (137-145); Total Protein 6.6 g/dL (6.3-8.2); Triglycerides 161 mg/dL (35-150)
[2022-11-22 09:29] LABS: TSH w/ Reflex to FT4 1.84 uIU/mL (0.47-4.68)
[2022-11-22 09:29] LABS: Appearance Urine UA CLEAR; Bilirubin Urine UA NEGATIVE (NEGATIVE); Color Urine UA YELLOW; Glucose Urine UA NEGATIVE (Negative); Ketones Urine UA NEGATIVE (NEGATIVE); Leukocyte Esterase Urine UA TRACE (NEGATIVE); Nitrite Urine UA NEGATIVE (Negative); Occult Blood Urine UA NEGATIVE (Negative); Protein Urine UA NEGATIVE (Negative); Specific Gravity Urine UA >=1.030 (1.000-1.035); Urobilinogen Urine UA 0.2 E.U./dL (0.2)
[2022-11-22 09:30] LABS: pH Urine UA 5.5 (4.5-8.0)
[2022-11-22 10:01] LABS: Bacteria Urine None Seen; Culture Indicated Urine Specimen Cultured; RBC Urine None Seen (0-5/HPF); Squamous Epithelial Cell Urine 0-1 /HPF (0-5/HPF); Transitional Epi Cells Urine 0-1/HPF (0-5/HPF); WBC Urine 1-5/HPF (0-5/HPF)
== END ==
PROVIDERS: PCP Pediatrics; Referring Provider Internal Medicine Rheumatology; Visit Provider Internal Medicine Rheumatology
DX: M05.79 Rheumatoid arthritis with rheumatoid factor of multiple sites without organ or systems involvement (principal); Z79.899 Other long term (current) drug therapy; E11.69 Type 2 diabetes mellitus with other specified complication; E11.9 Type 2 diabetes mellitus without complications; E55.9 Vitamin D deficiency, unspecified; E78.5 Hyperlipidemia, unspecified; I10 Essential (primary) hypertension; M06.9 Rheumatoid arthritis, unspecified
CPT/HCPCS: 36415; 80053; 80061; 81001; 82306; 84443; 85025; 85651; 86140; 87086

== ENCOUNTER → 2023-01-13 08:08 | Outpatient (CLI) | payer OTHER, SELFPAY ==
--- NOTE | 2023-01-13 | DI.MG.S_ITS ---
BILATERAL DIGITAL SCREENING MAMMOGRAM 3D/2D WITH CAD: 01/13/2023 CLINICAL: Routine screening. Family history of breast cancer. Comparison is made to exams dated: 01/06/2022 mammogram, 01/05/2021 mammogram, and 12/24/2019 mammogram - [facility]. There are scattered areas of fibroglandular density in both breasts (category b / 25%-50% glandular tissue). Current study was also evaluated with a Computer Aided Detection (CAD) system. There are benign calcifications in both breasts. There also are benign post operative findings in both breasts. No significant masses, calcifications, or other findings are seen in either breast. There has been no significant interval change. IMPRESSION: BENIGN There is no mammographic evidence of malignancy. A 1 year screening mammogram is recommended. Based on the Tyrer Cuzick model (a risk assessment model) the patient's lifetime risk is 2.3% and her 10 year risk is 2.3%. According to the ACR, ACS, and NCCN guidelines, an annual breast MRI exam along with mammogram is recommended if the patient's lifetime risk is 20% or greater. This exam was interpreted at Station ID: [id number]. NOTE: For mammograms, a report in lay terms will be sent to the patient. Approximately 15% of breast malignancies will not be visualized mammographically. In the management of a palpable breast mass, a negative mammogram must not discourage biopsy of a clinically suspicious lesion. Electronically Signed By: Gustavo [email or web address]:01/13/2023 12:51:42 letter sent: Normal Exam ACR BI-RADS Category 2: Benign Finding(s) [id number]
== END ==
PROVIDERS: PCP Family Medicine; Referring Provider Family Medicine; Visit Provider Family Medicine
DX: Z12.31 Encounter for screening mammogram for malignant neoplasm of breast (principal); Z80.3 Family history of malignant neoplasm of breast
CPT/HCPCS: 77063; 77067

== ENCOUNTER → 2023-02-22 08:38 | Outpatient (CLI) | payer OTHER, SELFPAY ==
[2023-02-22 10:06] LABS: Add Manual Diff / Slide Review NO; Basophils Absolute Auto 0 /uL (0-100); Eosinophils Absolute Auto 200 /uL (0-450); Eosinophils Percent Auto 4.2 % (2-4); Hematocrit 40.3 % (36-46); Hemoglobin 13.7 g/dL (12.0-16.0); Lymphocytes Absolute Auto 1100 /uL (1100-4500); Lymphocytes Percent Auto 28.8 % (25-40); Mean Corpuscular HGB Conc 34.1 % (30-36); Mean Corpuscular Hemoglobin 31.5 PG (26-34); Mean Corpuscular Volume 92.5 fL (80-100); Monocytes Absolute Auto 200 /uL (0-900); Monocytes Percent Auto 6.3 % (3-14); Neutrophils Absolute Auto 2300 /uL (1500-7000); Neutrophils Percent Auto 59.7 % (50-75); Platelet Count 282 X10^3/uL (150-400); Red Blood Cell Count 4.36 X10^6/uL (4.0-5.2); Red Cell Distribution Width 13.9 % (11.6-14.8); White Blood Cell Count 3.8 X10^3/uL (4.5-11.0)
[2023-02-22 10:13] LABS: Hemoglobin A1C% w Est Avg Glu 6.9 % (4.0-6.0)
[2023-02-22 10:22] LABS: Erythrocyte Sedimentation Rate 9 MM/HR (0-20)
[2023-02-22 10:31] LABS: Alanine Aminotransferase 24 IU/L (<35); Albumin Globulin Ratio 1.4 (1.0-2.8); Alkaline Phosphatase 55 U/L (38-126); Aspartate Aminotransferase 27 IU/L (14-36); BUN Creatinine Ratio 32.7 (6-22); Bilirubin Total 1.1 mg/dL (0.2-1.3); Blood Urea Nitrogen 18 mg/dL (7-17); C-Reactive Protein Quant < 0.5 mg/dL (<1.0); Calcium 9.6 mg/dL (8.4-10.2); Carbon Dioxide 27 mmol/L (22-32); Chloride 102 mmol/L (98-107); Estimated Glomerular Filt Rate > 60 mL/min (>60); Globulin 2.8 g/dL (1.7-4.1); Glucose 196 mg/dL (80-110); HEMOLYSIS < 15 (0-50); Potassium 3.8 mmol/L (3.4-5.1); Sodium 137 mmol/L (137-145); Total Protein 6.8 g/dL (6.3-8.2)
[2023-02-22 11:13] LABS: Vitamin B12 323 pg/mL (239-931)
== END ==
PROVIDERS: PCP Family Medicine; Referring Provider Internal Medicine Rheumatology; Visit Provider Internal Medicine Rheumatology
DX: M05.79 Rheumatoid arthritis with rheumatoid factor of multiple sites without organ or systems involvement (principal); Z79.899 Other long term (current) drug therapy; I10 Essential (primary) hypertension; E11.9 Type 2 diabetes mellitus without complications; E78.2 Mixed hyperlipidemia
CPT/HCPCS: 36415; 80053; 82607; 83036; 85025; 85651; 86140

== ENCOUNTER → 2023-03-23 11:27 | Outpatient (CLI) | payer OTHER, SELFPAY ==
[2023-03-23 13:22] LABS: Add Manual Diff / Slide Review NO; Basophils Absolute Auto 100 /uL (0-100); Basophils Percent Auto 0.9 % (0-2); Eosinophils Absolute Auto 300 /uL (0-450); Eosinophils Percent Auto 3.8 % (2-4); Hematocrit 41.3 % (36-46); Hemoglobin 14.1 g/dL (12.0-16.0); Lymphocytes Absolute Auto 2300 /uL (1100-4500); Lymphocytes Percent Auto 33.2 % (25-40); Mean Corpuscular HGB Conc 34.2 % (30-36); Mean Corpuscular Hemoglobin 31.7 PG (26-34); Mean Corpuscular Volume 92.6 fL (80-100); Monocytes Absolute Auto 700 /uL (0-900); Monocytes Percent Auto 9.9 % (3-14); Neutrophils Absolute Auto 3500 /uL (1500-7000); Neutrophils Percent Auto 52.2 % (50-75); Platelet Count 316 X10^3/uL (150-400); Red Blood Cell Count 4.46 X10^6/uL (4.0-5.2); Red Cell Distribution Width 13.8 % (11.6-14.8); White Blood Cell Count 6.8 X10^3/uL (4.5-11.0)
== END ==
LOC: LAB 11:46
PROVIDERS: PCP Family Medicine; Referring Provider Internal Medicine Rheumatology; Visit Provider Internal Medicine Rheumatology
DX: M05.79 Rheumatoid arthritis with rheumatoid factor of multiple sites without organ or systems involvement (principal); Z79.899 Other long term (current) drug therapy
CPT/HCPCS: 36415; 85025

== ENCOUNTER → 2023-05-24 13:30 | Outpatient (CLI) | payer OTHER, SELFPAY ==
[2023-05-24 14:50] LABS: Add Manual Diff / Slide Review NO; Basophils Absolute Auto 100 /uL (0-100); Basophils Percent Auto 0.9 % (0-2); Eosinophils Absolute Auto 200 /uL (0-450); Eosinophils Percent Auto 3.2 % (2-4); Hematocrit 42.5 % (36-46); Hemoglobin 14.6 g/dL (12.0-16.0); Lymphocytes Absolute Auto 2100 /uL (1100-4500); Lymphocytes Percent Auto 31.1 % (25-40); Mean Corpuscular HGB Conc 34.2 % (30-36); Mean Corpuscular Hemoglobin 31.7 PG (26-34); Mean Corpuscular Volume 92.5 fL (80-100); Monocytes Absolute Auto 500 /uL (0-900); Monocytes Percent Auto 7.6 % (3-14); Neutrophils Absolute Auto 3800 /uL (1500-7000); Neutrophils Percent Auto 57.2 % (50-75); Platelet Count 322 X10^3/uL (150-400); White Blood Cell Count 6.6 X10^3/uL (4.5-11.0)
[2023-05-24 15:15] LABS: Erythrocyte Sedimentation Rate 7 MM/HR (0-20)
[2023-05-24 15:21] LABS: Alanine Aminotransferase 24 IU/L (<35); Albumin 4.4 g/dL (3.5-5.0); Albumin Globulin Ratio 1.4 (1.0-2.8); Alkaline Phosphatase 60 U/L (38-126); Aspartate Aminotransferase 26 IU/L (14-36); Bilirubin Total 0.8 mg/dL (0.2-1.3); Blood Urea Nitrogen 21 mg/dL (7-17); C-Reactive Protein Quant 0.5 mg/dL (<1.0); Calcium 9.8 mg/dL (8.4-10.2); Carbon Dioxide 27 mmol/L (22-32); Chloride 106 mmol/L (98-107); Estimated Glomerular Filt Rate > 60 mL/min (>60); Globulin 3.1 g/dL (1.7-4.1); Glucose 105 mg/dL (80-110); HEMOLYSIS < 15 (0-50); Potassium 3.4 mmol/L (3.4-5.1); Sodium 139 mmol/L (137-145); Total Protein 7.5 g/dL (6.3-8.2)
== END ==
PROVIDERS: PCP Family Medicine; Referring Provider Internal Medicine Rheumatology; Visit Provider Internal Medicine Rheumatology
DX: E11.9 Type 2 diabetes mellitus without complications (principal); M05.79 Rheumatoid arthritis with rheumatoid factor of multiple sites without organ or systems involvement; Z79.899 Other long term (current) drug therapy
CPT/HCPCS: 36415; 80053; 83036; 85025; 85651; 86140

== ENCOUNTER → 2023-08-11 13:25 | Outpatient (CLI) | payer OTHER, SELFPAY ==
[2023-08-11 14:34] LABS: Add Manual Diff / Slide Review NO; Basophils Absolute Auto 100 /uL (0-100); Basophils Percent Auto 0.8 % (0-2); Eosinophils Absolute Auto 400 /uL (0-450); Eosinophils Percent Auto 5.5 % (2-4); Hematocrit 42.8 % (36-46); Hemoglobin 14.4 g/dL (12.0-16.0); Lymphocytes Absolute Auto 2300 /uL (1100-4500); Lymphocytes Percent Auto 34.4 % (25-40); Mean Corpuscular HGB Conc 33.8 % (30-36); Mean Corpuscular Hemoglobin 31.6 PG (26-34); Mean Corpuscular Volume 93.4 fL (80-100); Monocytes Absolute Auto 700 /uL (0-900); Monocytes Percent Auto 10.2 % (3-14); Neutrophils Absolute Auto 3300 /uL (1500-7000); Neutrophils Percent Auto 49.1 % (50-75); Platelet Count 336 X10^3/uL (150-400); Red Blood Cell Count 4.58 X10^6/uL (4.0-5.2); Red Cell Distribution Width 13.6 % (11.6-14.8); White Blood Cell Count 6.7 X10^3/uL (4.5-11.0)
[2023-08-11 14:37] LABS: Hemoglobin A1C% w Est Avg Glu 6.6 % (4.0-6.0)
[2023-08-11 14:51] LABS: Cholesterol 199 mg/dL (140-199); HDL Cholesterol 61 mg/dL (40-60); LDL Cholesterol Calculated 110 mg/dL (<100); Triglycerides 141 mg/dL (35-150)
[2023-08-11 14:55] LABS: Alanine Aminotransferase 19 IU/L (<35); Albumin 4.5 g/dL (3.5-5.0); Albumin Globulin Ratio 1.6 (1.0-2.8); Alkaline Phosphatase 60 U/L (38-126); Aspartate Aminotransferase 23 IU/L (14-36); Bilirubin Total 0.9 mg/dL (0.2-1.3); Blood Urea Nitrogen 27 mg/dL (7-17); C-Reactive Protein Quant < 0.5 mg/dL (<1.0); Calcium 9.7 mg/dL (8.4-10.2); Carbon Dioxide 31 mmol/L (22-32); Chloride 105 mmol/L (98-107); Estimated Glomerular Filt Rate > 60 mL/min (>60); Globulin 2.9 g/dL (1.7-4.1); Glucose 77 mg/dL (80-110); HEMOLYSIS < 15 (0-50); Potassium 3.7 mmol/L (3.4-5.1); Sodium 141 mmol/L (137-145); Total Protein 7.4 g/dL (6.3-8.2)
[2023-08-11 14:56] LABS: Erythrocyte Sedimentation Rate 11 MM/HR (0-20)
[2023-08-14 04:58] LABS: Hep C Virus Ab w/Reflex Quant NEGATIVE s/c (NEGATIVE)
== END ==
PROVIDERS: PCP Family Medicine; Referring Provider Internal Medicine Rheumatology; Visit Provider Internal Medicine Rheumatology
DX: Z79.899 Other long term (current) drug therapy (principal); I10 Essential (primary) hypertension; M05.79 Rheumatoid arthritis with rheumatoid factor of multiple sites without organ or systems involvement; E11.9 Type 2 diabetes mellitus without complications; E78.2 Mixed hyperlipidemia; Z11.59 Encounter for screening for other viral diseases
CPT/HCPCS: 36415; 80053; 80061; 83036; 85025; 85651; 86140; 86803

== ENCOUNTER → 2023-11-20 08:04 | Outpatient (CLI) | payer OTHER, SELFPAY ==
[2023-11-20 09:10] LABS: Add Manual Diff / Slide Review NO; Basophils Absolute Auto 100 /uL (0-100); Basophils Percent Auto 1.1 % (0-2); Eosinophils Absolute Auto 200 /uL (0-450); Eosinophils Percent Auto 4.8 % (2-4); Hematocrit 41.3 % (36-46); Hemoglobin 14.1 g/dL (12.0-16.0); Lymphocytes Absolute Auto 2000 /uL (1100-4500); Lymphocytes Percent Auto 38.9 % (25-40); Mean Corpuscular HGB Conc 34.2 % (30-36); Mean Corpuscular Hemoglobin 31.8 PG (26-34); Monocytes Absolute Auto 600 /uL (0-900); Monocytes Percent Auto 11.9 % (3-14); Neutrophils Absolute Auto 2200 /uL (1500-7000); Neutrophils Percent Auto 43.3 % (50-75); Platelet Count 273 X10^3/uL (150-400); Red Blood Cell Count 4.44 X10^6/uL (4.0-5.2); Red Cell Distribution Width 13.7 % (11.6-14.8); White Blood Cell Count 5.1 X10^3/uL (4.5-11.0)
[2023-11-20 09:33] LABS: Erythrocyte Sedimentation Rate 14 MM/HR (0-20)
[2023-11-20 09:50] LABS: Alanine Aminotransferase 16 IU/L (<35); Albumin 4.1 g/dL (3.5-5.0); Albumin Globulin Ratio 1.5 (1.0-2.8); Alkaline Phosphatase 69 U/L (38-126); Aspartate Aminotransferase 22 IU/L (14-36); BUN Creatinine Ratio 51.7 (6-22); Bilirubin Total 1.1 mg/dL (0.2-1.3); Blood Urea Nitrogen 30 mg/dL (7-17); C-Reactive Protein Quant < 0.5 mg/dL (<1.0); Calcium 9.4 mg/dL (8.4-10.2); Carbon Dioxide 22 mmol/L (22-32); Chloride 105 mmol/L (98-107); Estimated Glomerular Filt Rate > 60 mL/min (>60); Globulin 2.7 g/dL (1.7-4.1); Glucose 175 mg/dL (80-110); HEMOLYSIS < 15 (0-50); Potassium 3.9 mmol/L (3.4-5.1); Sodium 137 mmol/L (137-145); Total Protein 6.8 g/dL (6.3-8.2)
== END ==
PROVIDERS: PCP Family Medicine; Referring Provider Internal Medicine Rheumatology; Visit Provider Internal Medicine Rheumatology
DX: M05.79 Rheumatoid arthritis with rheumatoid factor of multiple sites without organ or systems involvement (principal); Z79.899 Other long term (current) drug therapy
CPT/HCPCS: 36415; 80053; 85025; 85651; 86140

== ENCOUNTER → 2023-12-08 09:59 | Outpatient (CLI) | payer OTHER, SELFPAY ==
[2023-12-08 13:30] LABS: Hemoglobin A1C% w Est Avg Glu 6.4 % (4.0-6.0)
== END ==
PROVIDERS: PCP Family Medicine; Referring Provider Family Medicine; Visit Provider Family Medicine
DX: E11.9 Type 2 diabetes mellitus without complications (principal); I10 Essential (primary) hypertension
CPT/HCPCS: 36415; 83036

== ENCOUNTER → 2024-01-16 15:04 | Outpatient (CLI) | payer OTHER, SELFPAY ==
--- NOTE | 2024-01-16 15:04 | DI.MG.S_ITS ---
BILATERAL DIGITAL SCREENING MAMMOGRAM 3D/2D WITH CAD: 01/16/2024 CLINICAL: Routine screening. Family history of breast cancer. Comparison is made to exams dated: 01/13/2023 mammogram, 01/06/2022 mammogram, 01/05/2021 mammogram, 12/01/2015 mammogram, 11/26/2014 mammogram, and 10/24/2014 mammogram - [facility]. There are scattered areas of fibroglandular density (category b / 25%-50% glandular tissue). Current study was also evaluated with a Computer Aided Detection (CAD) system. There are benign post operative findings in both breasts. No significant masses, calcifications, or other findings are seen in either breast. There has been no significant interval change. IMPRESSION: BENIGN There is no mammographic evidence of malignancy. A 1 year screening mammogram is recommended. Based on the Tyrer Cuzick model (a risk assessment model) the patient's lifetime risk is 2.1% and her 10 year risk is 0.0%. According to the ACR, ACS, and NCCN guidelines, an annual breast MRI exam along with mammogram is recommended if the patient's lifetime risk is 20% or greater. This exam was interpreted at Station ID: [id number]. NOTE: For mammograms, a report in lay terms will be sent to the patient. Approximately 15% of breast malignancies will not be visualized mammographically. In the management of a palpable breast mass, a negative mammogram must not discourage biopsy of a clinically suspicious lesion. Electronically Signed By: Frances Burnette M.D., Ph.D. [email or web address]/[email or web address]:01/17/2024 13:06:21 letter sent: Normal Exam ACR BI-RADS Category 2: Benign
== END ==
LOC: MAMMO 15:04
PROVIDERS: PCP Family Medicine; Referring Provider Family Medicine; Visit Provider Family Medicine
DX: Z12.31 Encounter for screening mammogram for malignant neoplasm of breast (principal); Z80.3 Family history of malignant neoplasm of breast
CPT/HCPCS: 77063; 77067

== ENCOUNTER → 2024-02-21 13:22 | Outpatient (CLI) | payer OTHER, SELFPAY ==
[2024-02-21 16:56] LABS: Hemoglobin A1C% w Est Avg Glu 6.3 % (4.0-6.0)
== END ==
PROVIDERS: PCP Family Medicine; Referring Provider Family Medicine; Visit Provider Family Medicine
DX: E11.9 Type 2 diabetes mellitus without complications (principal); Z79.4 Long term (current) use of insulin
CPT/HCPCS: 36415; 83036

== ENCOUNTER → 2024-03-05 11:36 | Outpatient (CLI) | payer OTHER, SELFPAY ==
[2024-03-07 15:18] LABS: Hepatitis B Surface Antigen NEGATIVE s/c (NEGATIVE)
== END ==
PROVIDERS: PCP Family Medicine; Referring Provider Family Medicine; Visit Provider Family Medicine
DX: M06.9 Rheumatoid arthritis, unspecified (principal)
CPT/HCPCS: 36415; 86480; 87340

== ENCOUNTER → 2024-05-30 12:49 | Outpatient (CLI) | payer OTHER, SELFPAY ==
[2024-05-30 13:08] LABS: Hematocrit 42.1 % (36-46); Hemoglobin 14.3 g/dL (12.0-16.0); Mean Corpuscular HGB Conc 33.9 % (30-36); Mean Corpuscular Hemoglobin 31.1 PG (26-34); Mean Corpuscular Volume 91.6 fL (80-100); Platelet Count 300 X10^3/uL (150-400); Red Cell Distribution Width 13.9 % (11.6-14.8); White Blood Cell Count 5.2 X10^3/uL (4.5-11.0)
[2024-05-30 13:27] LABS: Hemoglobin A1C% w Est Avg Glu 6.1 % (4.0-6.0)
[2024-05-30 13:33] LABS: Alanine Aminotransferase 22 IU/L (<35); Albumin 4.6 g/dL (3.5-5.0); Albumin Globulin Ratio 1.5 (1.0-2.8); Alkaline Phosphatase 57 U/L (38-126); Aspartate Aminotransferase 26 IU/L (14-36); BUN Creatinine Ratio 30.6 (6-22); Blood Urea Nitrogen 26 mg/dL (7-17); C-Reactive Protein Quant < 0.5 mg/dL (<1.0); Calcium 9.7 mg/dL (8.4-10.2); Carbon Dioxide 26 mmol/L (22-32); Chloride 103 mmol/L (98-107); Estimated Glomerular Filt Rate > 60 mL/min (>60); Globulin 3.1 g/dL (1.7-4.1); Glucose 132 mg/dL (80-110); HEMOLYSIS < 15 (0-50); Potassium 4.4 mmol/L (3.4-5.1); Sodium 138 mmol/L (137-145); Total Protein 7.7 g/dL (6.3-8.2)
== END ==
PROVIDERS: PCP Family Medicine; Referring Provider Family Medicine; Visit Provider Family Medicine
DX: M06.9 Rheumatoid arthritis, unspecified (principal); E11.9 Type 2 diabetes mellitus without complications; I10 Essential (primary) hypertension; E78.2 Mixed hyperlipidemia
CPT/HCPCS: 36415; 80053; 83036; 85027; 86140

== ENCOUNTER → 2024-08-28 07:02 | Outpatient (CLI) | payer OTHER, SELFPAY ==
[2024-08-28 07:58] LABS: BUN Creatinine Ratio 37.5 (6-22); Blood Urea Nitrogen 24 mg/dL (7-17); Calcium 9.5 mg/dL (8.4-10.2); Carbon Dioxide 27 mmol/L (22-32); Chloride 105 mmol/L (98-107); Cholesterol 184 mg/dL (140-199); Estimated Glomerular Filt Rate > 60 mL/min (>60); Glucose 128 mg/dL (70-99); HDL Cholesterol 55 mg/dL (40-60); HEMOLYSIS < 15 (0-50); LDL Cholesterol Calculated 101 mg/dL (<100); Potassium 4.1 mmol/L (3.4-5.1); Sodium 140 mmol/L (137-145); Triglycerides 138 mg/dL (35-150)
[2024-08-28 08:03] LABS: Hemoglobin A1C% w Est Avg Glu 6.3 % (4.0-6.0)
== END ==
PROVIDERS: PCP Family Medicine; Referring Provider Family Medicine; Visit Provider Family Medicine
DX: Z00.00 Encounter for general adult medical examination without abnormal findings (principal); E11.9 Type 2 diabetes mellitus without complications; I10 Essential (primary) hypertension; M06.9 Rheumatoid arthritis, unspecified
CPT/HCPCS: 36415; 80048; 80061; 83036

== ENCOUNTER → 2024-11-22 13:41 | Outpatient (CLI) | payer OTHER, SELFPAY ==
[2024-11-22 15:29] LABS: Hemoglobin A1C% w Est Avg Glu 6.7 % (4.0-6.0)
== END ==
LOC: LAB 13:42
PROVIDERS: PCP Family Medicine; Referring Provider Family Medicine; Visit Provider Family Medicine
DX: Z00.00 Encounter for general adult medical examination without abnormal findings (principal); Z79.4 Long term (current) use of insulin; E11.9 Type 2 diabetes mellitus without complications
CPT/HCPCS: 36415; 83036

== ENCOUNTER → 2025-01-25 11:06 | Outpatient (CLI) | payer OTHER, SELFPAY ==
--- NOTE | 2025-01-25 11:09 | DI.MG.S_ITS ---
MM screening mammo BI: 01/25/2025. BI-RADS: 1 CLINICAL: 79-year old female for bilateral screening mammogram. Tyrer-Cuzick lifetime risk of 3.4%. No personal or first-degree family history of breast cancer. Current reported family history of breast cancer: maternal aunt's daughter and second maternal aunt's daughter. The patient had prior bilateral breast biopsies. PRIOR EXAMS 01/16/2024, 01/13/2023, 01/06/2022, 01/05/2021, MAMMOGRAPHY TECHNIQUE: 2D and 3D (tomosynthesis) digital mammographic views obtained, with additional images as needed for full coverage. Current study was also evaluated with a Computer Aided Detection (CAD) system. DENSITY A. The breasts are almost entirely fatty. MAMMOGRAPHY FINDINGS Bilateral: No suspicious mass, asymmetry, microcalcification, or other abnormality seen. No significant change from comparison. IMPRESSION: * No evidence of malignancy. RECOMMENDATIONS Bilateral * Annual screening mammography. OVERALL ASSESSMENT CATEGORY BI-RADS-1: Negative. The [employer] recommends annual screening mammography beginning at age 40 for women with average risk of breast cancer. ELECTRONICALLY SIGNED: Leeanna Garcia M.D. on 01/27/2025 at 11:26:49 AM PT Interpreting Station ID: [id number]
== END ==
LOC: MAMMO 11:06
PROVIDERS: PCP Family Medicine; Referring Provider Family Medicine; Visit Provider Family Medicine
DX: Z12.31 Encounter for screening mammogram for malignant neoplasm of breast (principal); R92.313 Mammographic fatty tissue density, bilateral breasts; Z80.3 Family history of malignant neoplasm of breast
CPT/HCPCS: 77063; 77067

== ENCOUNTER → 2025-02-24 14:25 | Outpatient (CLI) | payer OTHER, SELFPAY ==
[2025-02-24 15:05] LABS: Add Manual Diff / Slide Review NO; Hematocrit 41.3 % (36-46); Hemoglobin 13.9 g/dL (12.0-16.0); Lymphocytes Absolute Auto 2200 /uL (1100-4500); Mean Corpuscular HGB Conc 33.8 % (30-36); Mean Corpuscular Hemoglobin 30.8 PG (26-34); Mean Corpuscular Volume 91.2 fL (80-100); Platelet Count 287 X10^3/uL (150-400)
[2025-02-24 15:13] LABS: Hemoglobin A1C% w Est Avg Glu 6.2 % (4.0-6.0)
[2025-02-24 15:23] LABS: Cholesterol 189 mg/dL (140-199); HDL Cholesterol 61 mg/dL (40-60); Triglycerides 110 mg/dL (35-150)
[2025-02-24 15:28] LABS: Alanine Aminotransferase 18 IU/L (<35); Albumin 4.3 g/dL (3.5-5.0); Albumin Globulin Ratio 1.4 (1.0-2.8); Alkaline Phosphatase 68 U/L (38-126); Blood Urea Nitrogen 21 mg/dL (7-17); Calcium 9.4 mg/dL (8.4-10.2); Carbon Dioxide 26 mmol/L (22-32); Chloride 102 mmol/L (98-107); Estimated Glomerular Filt Rate > 60 mL/min (>60); Globulin 3.0 g/dL (1.7-4.1); Glucose 102 mg/dL (70-99); HEMOLYSIS 18 (0-50); Potassium 3.7 mmol/L (3.4-5.1); Sodium 136 mmol/L (137-145); Total Protein 7.3 g/dL (6.3-8.2)
== END ==
PROVIDERS: PCP Family Medicine; Referring Provider Family Medicine; Visit Provider Internal Medicine Rheumatology
DX: M05.79 Rheumatoid arthritis with rheumatoid factor of multiple sites without organ or systems involvement (principal); I10 Essential (primary) hypertension; E11.9 Type 2 diabetes mellitus without complications; M06.9 Rheumatoid arthritis, unspecified; E78.2 Mixed hyperlipidemia; Z79.4 Long term (current) use of insulin; Z79.899 Other long term (current) drug therapy
CPT/HCPCS: 36415; 80053; 80061; 82172; 83036; 85025; 85651; 86140